=== PATIENT | female | born 1985 | race African-American/Black ===

== ENCOUNTER 2016-07-10 17:01 | Emergency (ER) | payer OTHER ==
[2016-07-10 18:09] VITALS: BP 111/65
== END 2016-07-10 19:55 | disposition left against medical advice (07) ==
LOC: UCEAST 17:01
DX: S61.019A Laceration without foreign body of unspecified thumb without damage to nail, initial encounter (principal); X58.XXXA Exposure to other specified factors, initial encounter; Y92.9 Unspecified place or not applicable; Z53.21 Procedure and treatment not carried out due to patient leaving prior to being seen by health care provider

== ENCOUNTER 2017-01-09 09:32 | Emergency (ER) | payer SELFPAY ==
[2017-01-09 10:43] VITALS: BP 105/52
[2017-01-09] MEDS ORDERED: Acetaminophen TAB* 325 MG PO ONE (11:00)
--- NOTE | 2017-01-09 11:24 | UC ---
Darrius Garcia Angela, scribed for Lu Martel MD on 01/09/17 at 1051 . Back Pain HPI - HPI Summary HPI Summary: This pt is a 31 y/o female accompanied by her presenting to [facility] c/o right-sided back pain, right hip pain, coccyx pain s/p fall 3 days ago. Pt reports she was walking out of a bar, in heels, going down stairs 3 days ago, she notes she was intoxicated and was walking down the metal stairs when she slipped 4 steps down. Pt states she fell sideways on her back and hip. Pt states has progressed since. She has not taken any pain medication yesterday or today. She used a muscle rub on her neck and hip with mild relief. She denies urinary or bowel incontinence, hematuria, tingling or weakness in LE, chipped teeth. No LOC. no ext weakness or paresthesia x 4 ext. No anticoagulants. no strike head. no LOC. Pt c/o pressure on her bladder. Pt denies any back surgeries. Pt is a current smoker (1 pack lasts 1.5 weeks), but denies drug use. Pt states she is trying to quit smoking. She is allergic to aspirin. LNMP: 12/10/16. Patients medication reviewed this visit. - History of Current Complaint Chief Complaint: UCBackPain Stated Complaint: back injury Time Seen by Provider: 01/09/17 10:29 Hx Obtained From: Patient, Family/Audiometric Technician - Hx Last Menstrual Period: 12/10/16 Onset/Duration: Lasting Days Timing: Lasting Days Back Pain: Is Discrete @ - right hip, coccyx pain, right sided back pain Associated Signs And Symptoms: Positive: Bruising. Negative: Swelling, Redness , Weakness, Numbness, Tingling, Abdominal Pain, Bladder Incontinence, Bowel Incontinence - Allergies/Home Medications Allergies/Adverse Reactions: Allergies Allergy/AdvReac Type Severity Reaction Status Date / Time Aspirin Allergy Mild Swelling Verified 01/09/17 10:39 Shellfish Allergy Allergy Rash Verified 01/09/17 10:39 PMH/Surg Hx/FS Hx/Imm Hx Previously Healthy: Yes Other Endocrine History: DENIES: diabetes Other Cardiovascular History: DENIES: HTN - Surgical History Surgical History: Yes Surgery Procedure, Year, and Place: ; stent post spontaneous pneumothorax - Family History Known Family History: Positive: Hypertension, Diabetes - Social History Occupation: Student - [employer] Lives: With Family Alcohol Use: Occasionally Substance Use Type: None Smoking Status (MU): Light Every Day Tobacco Smoker Type: Cigarettes Amount Used/How Often: 3 cigs daily Household Exposure Type: Cigarettes - Immunization History Most Recent Influenza Vaccination: utd Most Recent Tetanus Shot: utd Most Recent Pneumonia Vaccination: none Review of Systems Constitutional: Negative Skin: Bruising - right hip Eyes: Negative ENT: Negative Respiratory: Negative Cardiovascular: Negative Gastrointestinal: Negative Genitourinary: Negative Motor: Negative Neurovascular: Negative Musculoskeletal: Other: - right sided back pain, right hip pain, coccyx pain Neurological: Negative Psychological: Negative Is Patient Immunocompromised?: No All Other Systems Reviewed And Are Negative: Yes Physical Exam Triage Information Reviewed: Yes Appearance: Well-Appearing, Pain Distress - discomfort with movement, walking Vital Signs: Initial Vital Signs Temp 98.3 F 01/09/17 10:39 Pulse 82 01/09/17 10:39 Resp 16 01/09/17 10:39 BP 105/52 01/09/17 10:39 Pulse Ox 100 01/09/17 10:39 Vital Signs Reviewed: Yes Eye Exam: Normal Eyes: Positive: Conjunctiva Clear ENT Exam: Normal ENT: Positive: Normal ENT inspection, Hearing grossly normal, Pharynx normal, TMs normal, Other: - no hemotymp No septal hematoma no blood oropharynx mmoist no exudate, no erythema Dental Exam: Normal Neck exam: Normal Neck: Positive: Supple, Nontender, No Lymphadenopathy Respiratory Exam: Normal Respiratory: Positive: Chest non-tender, Lungs clear, Normal breath sounds, No respiratory distress, No accessory muscle use Cardiovascular Exam: Normal Cardiovascular: Positive: RRR, No Murmur, Pulses Normal Abdominal Exam: Normal Abdomen Description: Positive: Nontender, No Organomegaly, Soft Bowel Sounds: Positive: Present Musculoskeletal Exam: Normal Musculoskeletal: Positive: Other: - no pain c/t/l/s Full AROM c spine + TTP right paraspinal mild lumbar spine + mild TTP right iliac crest Full AROM ext x 4 Neurological Exam: Normal Neurological: Positive: Alert Psychological Exam: Normal Psychological: Positive: Normal Response To Family Skin: Positive: Other - linear ecchymosis 4cm over right iliac crest no abrasions Diagnostics - Radiology Pelvis XR Xray Interpretation: No Acute Changes - IMPRESSION: No evidence for fracture. If the patient's symptoms persist recommend follow-up imaging. ED physician has reviewed this radiology report and agrees. Radiology Interpretation Completed By: Radiologist Lumbar spine XR Xray Interpretation: Positive (See Comments) - IMPRESSION: Suggestion of nonacute sclerotic margined bilateral L5 spondylolysis without associated spondylolisthesis. No acute or subacute fracture evident. ED physician has reviewed this radiology report and agrees. Radiology Interpretation Completed By: Radiologist Re-Evaluation - Re-Evaluation First Eval Change: Improved - reviewed results with pt will discharge Rx flexeril schoolnote Back Pain Course/Dx - Course Course Of Treatment: Pt with body aches, right hip, iliac crest pain s/p slip and fall on Monday evening. I spoke with pt in private - pt denies DV - states feels safe at home. Will give APAP (pt states poorly tolerated narcotic in the past). ice. xray. pt comfortable and in agreement with plan - Differential Dx/Diagnosis Provider Diagnoses: contusion Discharge - Discharge Plan Condition: Stable Disposition: HOME Prescriptions: Cyclobenzaprine TAB* [Flexeril 10 MG TAB*] 10 mg PO BID PRN #6 tab PRN Reason: Spasms Patient Education Materials: Contusion in Adults (ED) Forms: *School Release Referrals: Nils Sharma MD [Primary Care Provider] - Additional Instructions: - apply ice (Wrapped in a towel) 20 minutes at a time, 2-3 times a day for the next 2 days - after this, apply heat - slow gentle stretching exercises are important - Okay to take Tylenol (acetaminophen) every 6-8 hours for pain - Take muscle relaxer as prescribed. do not drive or operate machinery while taking this medication - contact your doctor to schedule a follow-up appointment. Contact your doctor or return with questions or concerns The documentation as recorded by the Darrius negrete Angela accurately reflects the service I personally performed and the decisions made by , Lu Martel MD.
--- NOTE | 2017-01-09 11:43 | RAD ---
Indication: RIGHT lateral mid lumbar spine pain post fall. Comparison: No relevant prior exams available on the [facility] PACS for comparison. Technique: AP and lateral views lumbar sacral spine. Report: Normal lumbar sacral spine alignment. Suggestion of nonacute sclerotic margined bilateral L5 spondylolysis without associated spondylolisthesis. No acute or subacute fracture evident. Preserved disc spaces. Unremarkable paravertebral soft tissue contours. IMPRESSION: Suggestion of nonacute sclerotic margined bilateral L5 spondylolysis without associated spondylolisthesis. No acute or subacute fracture evident.
--- NOTE | 2017-01-09 11:47 | RAD ---
INDICATION: Trauma, ecchymosis lateral lumbar spine and right iliac crest. TECHNIQUE: An AP view of the pelvis was obtained. FINDINGS: The bones are in normal alignment. No fracture is seen. Joint spaces appear maintained. IMPRESSION: NO EVIDENCE FOR FRACTURE, IF THE PATIENT'S SYMPTOMS PERSIST RECOMMEND FOLLOW-UP IMAGING.
== END 2017-01-09 12:03 | disposition home or self-care (01) ==
LOC: UCEAST 09:32
DX: S30.1XXA Contusion of abdominal wall, initial encounter (principal); W10.9XXA Fall (on) (from) unspecified stairs and steps, initial encounter; Y93.89 Activity, other specified; Y92.89 Other specified places as the place of occurrence of the external cause; M79.1 Myalgia; M25.551 Pain in right hip; Z88.6 Allergy status to analgesic agent; F17.210 Nicotine dependence, cigarettes, uncomplicated
CPT/HCPCS: 72100; 72170; 81003; 99212; A9270-GY; G0463

== ENCOUNTER 2017-01-12 09:41 | Emergency (ER) | payer OTHER ==
[2017-01-12] MEDS ORDERED: HYDROcodone/ACETAMIN 5-325 MG* 1 TAB PO ONE (10:29)
[2017-01-12 10:31] LABS: Hematocrit 35 % (35-47); Hemoglobin 11.9 g/dl (12.0-16.0); Mean Corpuscular HGB Conc 34 g/dl (31-36); Mean Corpuscular Hemoglobin 32 pg (27-31); Mean Corpuscular Volume 94 fL (80-97); Mean Platelet Volume 7 um3 (7.4-10.4); Red Cell Distribution Width 14 % (10.5-15); White Blood Count 4.1 10^3/ul (3.5-10.8)
--- NOTE | 2017-01-12 10:53 | RAD ---
HISTORY: Chest pain COMPARISONS: March 22, 2016 VIEWS: 1: frontal portable view of the chest at at 10:35 AM FINDINGS: LINES AND TUBES: None. CARDIOMEDIASTINAL SILHOUETTE: The cardiomediastinal silhouette is normal for portable technique. PLEURA: The costophrenic angles are sharp. No pleural abnormalities are noted. LUNG PARENCHYMA: The lungs are clear. ABDOMEN: The upper abdomen is clear. There is no subphrenic gas. BONES AND SOFT TISSUES: No bone or soft tissue abnormalities are noted. IMPRESSION: NO ACTIVE CARDIOPULMONARY DISEASE.
[2017-01-12 11:04] LABS: Albumin 4.1 g/dL (3.2-5.2); BUN/Creatinine Ratio 12.5 (8-20); Calcium 9.3 mg/dL (8.6-10.3); EGFR African American 108.3 (>60); EGFR Non-African American 84.2 (>60); Potassium 3.8 mmol/L (3.5-5.0); Total Bilirubin 0.6 mg/dL (0.2-1.0); Total Protein 7.1 g/dL (6.4-8.9)
[2017-01-12 11:55] VITALS: BP 115/73
--- NOTE | 2017-01-12 18:33 | ED ---
Darrius Garcia Angela, scribed for Arias Blevins MD on 01/12/17 at 1031 . HPI Chest Pain - HPI Summary HPI Summary: This pt is a 31 y/[facility] c/o pain across her chest and behind her collar bones x3 days. Pt reports she fell down the stairs 5 days ago , she slipped and hit her hip. She went to [facility] for hip pain and ecchymosis 3 days ago. After 2 days, pt reports she began to experience sharp pain on her chest and across her back. Yesterday, pt noticed she was SOB. She states taking Flexeril last night at 0100 with mild relief. Pt denies LE swelling or pain. - History of Current Complaint Chief Complaint: EDChestPainROMI Time Seen by Provider: 01/12/17 10:02 Hx Obtained From: Patient Hx Last Menstrual Period: 12/10/16 Onset/Duration: Started Days Ago Timing: Lasting Days Pain Intensity: 8 Pain Scale Used: 0-10 Numeric Chest Pain Location: Diffuse Chest Pain Radiates: No Associated Signs and Symptoms: Positive: Chest Pain, Shortness of Breath, Back Pain. Negative: Numbness, Tingling, Weakness, Calf Pain/Swelling - Allergy/Home Medications Allergies/Adverse Reactions: Allergies Allergy/AdvReac Type Severity Reaction Status Date / Time Aspirin Allergy Mild Swelling Verified 01/09/17 10:39 Shellfish Allergy Allergy Rash Verified 01/09/17 10:39 PMH/Surg Hx/FS Hx/Imm Hx Endocrine/Hematology History: Denies: Hx Diabetes, Hx Thyroid Disease Cardiovascular History: Denies: Hx Hypertension Respiratory History: Denies: Hx Asthma, Hx Chronic Obstructive Pulmonary Disease (COPD) GI History: Denies: Hx Ulcer - Surgical History Surgery Procedure, Year, and Place: ; stent post spontaneous pneumothorax Infectious Disease History: No Infectious Disease History: Reports: Hx Shingles - had treatment Denies: Hx Clostridium Difficile, Hx Hepatitis, Hx Human Immunodeficiency Virus (HIV), Hx of Known/Suspected MRSA, Hx Tuberculosis, Hx Known/Suspected VRE , Hx Known/Suspected VRSA, History Other Infectious Disease, Traveled Outside the [place] in Last 30 Days - Family History Known Family History: Positive: Hypertension, Diabetes - Social History Alcohol Use: Occasionally Substance Use Type: Reports: None Smoking Status (MU): Light Every Day Tobacco Smoker Type: Cigarettes Amount Used/How Often: 3 cigs daily Review of Systems Negative: Fever, Chills ENT: Negative Positive: Chest Pain Positive: Shortness Of Breath Gastrointestinal: Negative Positive: Other - back pain. Negative: Edema Negative: Headache, Weakness, Paresthesia All Other Systems Reviewed And Are Negative: Yes Physical Exam - Summary Physical Exam Summary: VITAL SIGNS: Reviewed. GENERAL: ~Patient is a well-developed and nourished female who is lying comfortable in the stretcher. ~Patient is not in any acute respiratory distress. HEAD AND FACE: No signs of trauma. ~No ecchymosis, hematomas or skull depressions. No sinus tenderness. EYES: PERRLA, EOMI x 2, No injected conjunctiva, no nystagmus. EARS: Hearing grossly intact. Ear canals and tympanic membranes are within normal limits. MOUTH: Oropharynx within normal limits. NECK: Supple, trachea is midline, no adenopathy, no JVD, no carotid bruit, no c- spine tenderness, neck with full ROM. CHEST: Symmetric. There is some tenderness on the upper chest. LUNGS: Clear to auscultation bilaterally. No wheezing or crackles. CVS: Regular rate and rhythm, S1 and S2 present, no murmurs or gallops appreciated. ABDOMEN: Soft, non-tender. No signs of distention. No rebound no guarding, and no masses palpated. Bowel sounds are normal. EXTREMITIES: FROM in all major joints, no edema, no cyanosis or clubbing. MSK: there is comes tenderness in the upper back. NEURO: Alert and oriented x 3. No acute neurological deficits. Speech is normal and follows commands. SKIN: Dry and warm Triage Information Reviewed: Yes Vital Signs On Initial Exam: Initial Vitals Temp Pulse Resp BP Pulse Ox 97.8 F 70 18 115/70 100 01/12/17 09:41 01/12/17 09:41 01/12/17 09:41 01/12/17 09:41 01/12/17 09:41 Vital Signs Reviewed: Yes Diagnostics - Vital Signs Vital Signs Temp Pulse Resp BP Pulse Ox 01/12/17 09:41 97.8 F 70 18 115/70 100 - Laboratory Lab Results: Lab Results 01/12/17 01/12/17 01/12/17 Range/Units 10:18 10:18 10:18 WBC 4.1 (3.5-10.8) 10^3/ul RBC 3.70 L (4.0-5.4) 10^6/ul Hgb 11.9 L (12.0-16.0) g/dl Hct 35 (35-47) % MCV 94 (80-97) fL MCH 32 H (27-31) pg MCHC 34 (31-36) g/dl RDW 14 (10.5-15) % Plt Count 252 (150-450) 10^3/ul MPV 7 L (7.4-10.4) um3 Neut % (Auto) 49.3 (38-83) % Lymph % (Auto) 39.5 (25-47) % [place] % (Auto) 7.4 (1-9) % Eos % (Auto) 2.9 (0-6) % Baso % (Auto) 0.9 (0-2) % Absolute Neuts (auto) 2.0 (1.5-7.7) 10^3/ul Absolute Lymphs (auto) 1.6 (1.0-4.8) 10^3/ul Absolute Monos (auto) 0.3 (0-0.8) 10^3/ul Absolute Eos (auto) 0.1 (0-0.6) 10^3/ul Absolute Basos (auto) 0 (0-0.2) 10^3/ul Absolute Nucleated RBC 0 10^3/ul Nucleated RBC % 0.1 Sodium 136 (133-145) mmol/L Potassium 3.8 (3.5-5.0) mmol/L Chloride 105 (101-111) mmol/L Carbon Dioxide 25 (22-32) mmol/L Anion Gap 6 (2-11) mmol/L BUN 10 (6-24) mg/dL Creatinine 0.80 (0.51-0.95) mg/dL Est GFR ( Amer) 108.3 (>60) Est GFR (Non-Af Amer) 84.2 (>60) BUN/Creatinine Ratio 12.5 (8-20) Glucose 88 (70-100) mg/dL Lactic Acid 0.9 (0.5-2.0) mmol/L Calcium 9.3 (8.6-10.3) mg/dL Total Bilirubin 0.60 (0.2-1.0) mg/dL AST 16 (13-39) U/L ALT 15 (7-52) U/L Alkaline Phosphatase 50 (34-104) U/L Troponin I 0.00 (<0.04) ng/mL Total Protein 7.1 (6.4-8.9) g/dL Albumin 4.1 (3.2-5.2) g/dL Globulin 3.0 (2-4) g/dL Albumin/Globulin Ratio 1.4 (1-3) Result Diagrams: 01/12/17 10:18 01/12/17 10:18 Lab Statement: Any lab studies that have been ordered have been reviewed, and results considered in the medical decision making process. - Radiology Chest XR Xray Interpretation: No Acute Changes - IMPRESSION: No active cardiopulmonary disease. ED physician has reviewed this radiology report and agrees. Radiology Interpretation Completed By: Radiologist - EKG 1004 Cardiac Rate: NL - 68 bpm EKG Rhythm: Sinus Rhythm ST Segment: Normal EKG Interpretation: Normal axis. No ST elevation Re-Evaluation - Re-Evaluation First Eval Re-Evaluation Time: 11:43 Comment: I discussed the XR results with the pt. Chest Pain Course/Dx - Course Assessment/Plan: This pt is a 31 y/o female presenting to [facility] c/o pain across her chest and behind her collar bones x3 days. Pt reports she fell down the stairs 5 days ago, she slipped and hit her hip. She went to [facility] for hip pain and ecchymosis 3 days ago. After 2 days, pt reports she began to experience sharp pain on her chest and across her back. Yesterday, pt noticed she was SOB. She states taking Flexeril last night at 0100 with mild relief. Pt denies LE swelling or pain. Test results are without any abnormalities. Chest XR is negative for an acute pathology. Physical examination did not reveal any acute abnormalities. In the ED, the pt was given Percocet for the pain and her symptoms resolved. Pt was upset for a couple of hours and the symptoms did not return. I believe her symptoms are secondary to musculoskeletal pain and to her fall a couple of days ago. Pt will be discharged home with follow up from PCP. Pt is hemodynamically stable, alert and oriented x3. - Chest Pain Differential Diagnosis/HQI/PQRI: Angina, CHF, Chest Wall, GI Disease, Lower Respiratory Infection - Diagnoses Provider Diagnoses: Atypical chest pain Discharge - Discharge Plan Condition: Stable Disposition: HOME Prescriptions: Naproxen TAB* [Naprosyn 250 mg TAB*] 500 mg PO Q8H PRN #20 tab PRN Reason: Pain Patient Education Materials: Chest Pain (ED) Referrals: Nils Sharma MD [Primary Care Provider] - 3 Days Additional Instructions: Please follow up with your primary care provider. The documentation as recorded by the Darrius negrete Angela accurately reflects the service I personally performed and the decisions made by Gen quezada Walter, MD.
== END 2017-01-12 11:56 | disposition home or self-care (01) ==
LOC: ED 09:41
DX: R07.89 Other chest pain (principal); F17.210 Nicotine dependence, cigarettes, uncomplicated
CPT/HCPCS: 36415; 71010; 80053; 83605; 84484; 85025; 93005; 99283

== ENCOUNTER 2017-04-30 10:07 | Emergency (ER) | payer OTHER ==
[2017-04-30 10:10] VITALS: BP 124/76
[2017-04-30] MEDS ORDERED: NS 0.9% 1000 ML* 1,000 ML IV ONE (10:32)
[2017-04-30 11:00] LABS: ABS Basophils 0 10^3/ul (0-0.2); ABS Eosinophils 0.1 10^3/ul (0-0.6); ABS Lymphocytes 1.6 10^3/ul (1.0-4.8); ABS Monocytes 0.3 10^3/ul (0-0.8); ABS Neutrophils 2.3 10^3/ul (1.5-7.7); ABS Nucleated RBC 0 10^3/ul; Eosinophil % 1.6 % (0-6); Hematocrit 36 % (35-47); Hemoglobin 12.2 g/dl (12.0-16.0); Lymphocyte % 36.8 % (25-47); Mean Corpuscular HGB Conc 34 g/dl (31-36); Mean Corpuscular Hemoglobin 32 pg (27-31); Mean Corpuscular Volume 95 fL (80-97); Mean Platelet Volume 8 um3 (7.4-10.4); Nucleated Red Blood Cells % 0.1; Platelet Count 218 10^3/ul (150-450); Red Cell Distribution Width 13 % (10.5-15); White Blood Count 4.3 10^3/ul (3.5-10.8)
--- NOTE | 2017-04-30 11:01 | ED ---
GI/ HPI - HPI Summary HPI Summary: 31 female presents to ED with complaints of vaginal bleeding that has been ongoing since the beginning of March 2017. Patient states she began a OCP pill just after thanksgi and began spotting that turned into heavy bleeding so patient then discontinued OCP about a week in a half after starting them. Has not restarted or been on any control since then. Patient denies any PMHx and no history. Denies STD concern, other vaginal discharge, odor or itching. Denies urinary symptoms. Normal bowel movements. States the bleeding has been fluctuating in flow over the past few weeks however over the past 3 days patient has had heavy bleeding ~2 super pads per hour. Feels dizzy, lightheaded, fatigued and experiencing muscle aches "feels depleted". Also has some mild menstrual cycle like cramping over the past couple of days, similar to menses pain. No concern for . Does have PMHX of iron deficiency anemia however hasn't been taking iron. Denies any syncopal episodes. No other complaints or abdominal pain. No medications. Has been 4-5 times and has 2 children, normal pregnancies/births. - History of Current Complaint Chief Complaint: EDVaginalBleeding Time Seen by Provider: 04/30/17 10:30 Stated Complaint: WEAKNESS Hx Obtained From: Patient Hx Last Menstrual Period: 03/18/2017 Onset/Duration: Started Weeks Ago, Still Present Timing: Constant Severity: Mild Current Severity: Mild Number of Pads per Hour: 2 Pain Intensity: 6 Location of Pain: Suprapubic - cramping Pain Characteristics: Cramping Associated Signs and Symptoms: Positive: Weakness, Lightheadedness Additional Signs & Symptoms: Positive: Vaginal Bleeding, - 4 or 5, Para - 2, Menses Irregular Aggravating Factor(s): Nothing Alleviating Factor(s): Nothing - Allergy/Home Medications Allergies/Adverse Reactions: Allergies Allergy/AdvReac Type Severity Reaction Status Date / Time Aspirin Allergy Mild Swelling Verified 04/30/17 10:11 Shellfish Allergy Allergy Rash Verified 04/30/17 10:11 PMH/Surg Hx/FS Hx/Imm Hx Endocrine/Hematology History: Reports: Hx Anemia Denies: Hx Diabetes, Hx Thyroid Disease Cardiovascular History: Denies: Hx Hypertension Respiratory History: Denies: Hx Asthma, Hx Chronic Obstructive Pulmonary Disease (COPD) GI History: Denies: Hx Ulcer - Surgical History Surgery Procedure, Year, and Place: ; stent post spontaneous pneumothorax - Immunization History Immunizations Up to Date: Yes Infectious Disease History: No Infectious Disease History: Reports: Hx Shingles - had treatment Denies: Hx Clostridium Difficile, Hx Hepatitis, Hx Human Immunodeficiency Virus (HIV), Hx of Known/Suspected MRSA, Hx Tuberculosis, Hx Known/Suspected VRE , Hx Known/Suspected VRSA, History Other Infectious Disease, Traveled Outside the [place] in Last 30 Days - Family History Known Family History: Positive: None, Hypertension, Diabetes - Social History Alcohol Use: Occasionally Substance Use Type: Reports: None Smoking Status (MU): Light Every Day Tobacco Smoker Type: Cigarettes Amount Used/How Often: 3 cigs daily Review of Systems Positive: Fatigue Cardiovascular: Negative Respiratory: Negative Positive: Abdominal Pain - craming, suprapubic Positive: other - vaginal bleeding, cramping Musculoskeletal: Negative Skin: Negative Positive: Weakness - dizziness/lightheaded when changing positions quickly All Other Systems Reviewed And Are Negative: Yes Physical Exam Triage Information Reviewed: Yes Vital Signs On Initial Exam: Initial Vitals Temp Pulse Resp BP Pulse Ox 97.0 F 86 15 124/76 100 04/30/17 10:04/30/17 10:04/30/17 10:04/30/17 10:04/30/17 10:07 Completion Of Physical Exam Limited Due To: Dementia Appearance: Positive: Well-Appearing, No Pain Distress, Well-Nourished Skin: Positive: Warm, Skin Color Reflects Adequate Perfusion, Dry, Pale. Negative: Cold, Cyanosis @, Jaundiced, Erythema @ Head/Face: Positive: Normal Head/Face Inspection Eyes: Positive: Conjunctiva Clear ENT: Positive: Hearing grossly normal Neck: Positive: Supple, Nontender Respiratory/Lung Sounds: Positive: Clear to Auscultation, Breath Sounds Present. Negative: Rales, Rhonchi, Wheezes Cardiovascular: Positive: Normal, RRR, Pulses are Symmetrical in both Upper and Lower Extremities. Negative: Murmur, Rub Abdomen Description: Positive: Nontender, Soft. Negative: CVA Tenderness (R), CVA Tenderness (L), Distended, Guarding Bowel Sounds: Positive: Present Pelvic Exam: Positive: active bleeding, tender w/ cervical motion, other - patient refused exam Musculoskeletal: Positive: Normal, Strength/ROM Intact Neurological: Positive: Normal, Sensory/Motor Intact, Alert, Oriented to Person Place, Time, CN Intact II-III, Reflexes Intact, NV Bundle Intact Distally, Normal Gait Diagnostics - Vital Signs Vital Signs Temp Pulse Resp BP Pulse Ox 04/30/17 10:07 97.0 F 86 15 124/76 100 - Laboratory Result Diagrams: 04/30/17 10:51 04/30/17 10:51 Lab Statement: Any lab studies that have been ordered have been reviewed, and results considered in the medical decision making process. - Ultrasound No standard instances Ultrasound Interpretation: No Acute Changes - 1. NO EVIDENCE FOR ACUTE FINDING. 2. SMALL COMPLEX RIGHT OVARIAN CYST. RECOMMEND A FOLLOW-UP TRANSVAGINAL PELVIC ULTRASOUND IN 1-2 MONTHS TIME TO DEMONSTRATE RESOLUTION. 3. FINDINGS SUGGESTIVE OF PELVIC CONGESTION SYNDROME. Ultrasound Interpretation Completed By: Radiologist Re-Evaluation - Re-Evaluation First Eval Re-Evaluation Time: 12:44 Change: Worse - cramps intensified, asking for pain management, will give toradol. updated on labs and imaging results. GIGU Course/Dx - Course Course Of Treatment: labs obtained. given fluids. labs unremarkable and no signs of anemia. negative HCG. did not want pain management at first however once cramps increased given 30mg toradol. obtained ultrasound which was negative for acute finding other than small right ovarian cyst, recheck in 1-2 months as it is complex, patient aware, agrees and understands. normal vitals throughout stay not showing signs of hypovolemia. patietn refused pelvic exam, therefore no cultures obtained. normal PE other than vaginal bleeding. does not have OBGYN and just went to [facility] in the past. negative urinalysis other than 1+ leuk esterasy and blood, as patient is having vaginal bleeding. does not have UTI symptoms and no bacteria WBC or nitrate in urinalysis, will wait for culture results at this time. due to complaints of muscle/joint aches and exposure to ticks over summer will obtain lyme serology, pending results. will send home with pain management. given toradol while in ED. Encouraged high iron diet and heating pads. increase fluids, rest. Follow up OBGYN to discuss OCP and DUB symptoms adn to recheck small right ovarian cyst. Aware of worsening signs and symptoms to watch out for, return if occur. No other concerns for other etiology at this time. - Diagnoses Differential Diagnoses - Female: Other - vaginal bleeding, DUB, menorhagia, menses, ovarian cyst Provider Diagnoses: Dysfunctional uterine bleeding, Menorrhagia with irregular cycle, Ovarian cyst , right Discharge - Discharge Plan Condition: Stable Disposition: HOME Prescriptions: HYDROcodone/ACETAMIN 5-325 MG* [Felicity 5-325 TAB*] 1 tab PO Q8H PRN #8 tab MDD 2 PRN Reason: Pain Ibuprofen TAB* [Motrin TAB* 600 MG] 600 mg PO Q6H PRN #30 tab PRN Reason: Pain Patient Education Materials: Dysfunctional Uterine Bleeding (ED), Menorrhagia ( ED), Ovarian Cyst (ED) Referrals: Nils Sharma MD [Primary Care Provider] - Gay Clifford MD [Medical Doctor] - Additional Instructions: Please call and make an appointment to follow up with OBGYN to discuss further treatment options and evaluation. Any new or worsening symptoms please seek medical attention promptly. Recommend eating high iron diet, or continue taking iron supplements as in the past. Increase fluid intake, rest. Prescribed medication as needed for pain, Refrain from ibuprofen until tomorrow morning. Heating pads on lower abdomen to help with cramps.
[2017-04-30 11:18] LABS: EGFR Non-African American 84.2 (>60)
[2017-04-30 11:29] LABS: INR 1.02 (0.77-1.02)
--- NOTE | 2017-04-30 12:15 | RAD ---
INDICATION: Vaginal bleeding for one month. COMPARISON: Comparison is made with a prior pelvic ultrasound from February 01, 2007. TECHNIQUE: Multiple real-time transvaginal images of the pelvis were obtained. FINDINGS: The uterus is normal in size, shape and echogenicity. The uterus measured 8.2 x 3.5 x 4.3 cm. The endometrial echo measured 0.2 cm in thickness. The right ovary measured 3.0 x 3.2 x 2.5 cm. The left ovary measured 2.8 x 1.7 x 2.6 cm. There is vascular flow within both ovaries. There is a complex cyst in the right ovary measured 2.5 x 1.9 x 2.3 cm. No free intraperitoneal fluid is seen. There are prominent vascular structures present in both adnexa left greater than right suggesting the possibility of pelvic congestion syndrome. IMPRESSION: 1. NO EVIDENCE FOR ACUTE FINDING. 2. SMALL COMPLEX RIGHT OVARIAN CYST. RECOMMEND A FOLLOW-UP TRANSVAGINAL PELVIC ULTRASOUND IN 1-2 MONTHS TIME TO DEMONSTRATE RESOLUTION. 3. FINDINGS SUGGESTIVE OF PELVIC CONGESTION SYNDROME.
[2017-04-30] MEDS ORDERED: Ketorolac INJ* 30 MG/ML 1 ML VIAL IV PUSH ONE (12:40)
[2017-04-30 12:46] LABS: Urine Appearance Clear; Urine Blood 3+ (Negative); Urine Color Yellow; Urine Ketones Trace (Negative); Urine Protein 1+(30 mg/dL) (Negative); Urine Specific Gravity 1.019 (1.010-1.030); Urine Urobilinogen Negative (Negative)
== END 2017-04-30 13:04 | disposition home or self-care (01) ==
LOC: ED 10:07
DX: N93.8 Other specified abnormal uterine and vaginal bleeding (principal); N92.0 Excessive and frequent menstruation with regular cycle; N83.201 Unspecified ovarian cyst, right side; R53.1 Weakness; R42 Dizziness and giddiness; R53.83 Other fatigue; F17.210 Nicotine dependence, cigarettes, uncomplicated
CPT/HCPCS: 36415; 76830; 80053; 81003; 81015; 83605; 84702; 85025; 85610; 85730; 86850; 86900; 86901; 87086; 96361; 96374; 99282; J1885

== ENCOUNTER 2018-01-07 21:12 | Emergency (ER) | payer OTHER ==
[2018-01-07 21:30] VITALS: BP 97/57
--- NOTE | 2018-01-07 22:34 | UC ---
Respiratory Complaint HPI - HPI Summary HPI Summary: 32 y/o female presents to the urgent care c/o upper respiratory infection s/p RT mold exposure for the past week. Pt was moving out her appt and she was exposed to a lot of mold. Then she developed productive cough for the past 4 days. She has subjective low grade fever yesterday and she has been coughing so much that her Rt side of chest hurts. Pt has been taking Nyquil PO w/o any improvement of symptoms. Pt dneis SOB, wheezing, abdominal pain, chest pain, N/V /D. Pt w/ PMHx pf spontaneous pneumothorax - History of Current Complaint Chief Complaint: UCGeneralIllness Stated Complaint: COUGH Time Seen by Provider: 01/07/18 22:09 Hx Obtained From: Patient Hx Last Menstrual Period: [id number] ?: No Onset/Duration: Gradual Onset, Lasting Weeks - 1 week, Still Present, Worse Since - 4 days Timing: Intermittent Episodes Severity Initially: Mild Severity Currently: Moderate Pain Intensity: 8 Pain Scale Used: 0-10 Numeric Character: Cough: Productive, Sputum Description: - [email or web address] Aggravating Factors: Recumbent Position Alleviating Factors: OTC Meds Associated Signs And Symptoms: Positive: Fever - at the beining of symptoms, URI , Nasal Congestion - Risk Factors Pulmonary Embolism Risk Factors: Negative Cardiac Risk Factors: Negative Pseudomonas Risk Factors: Negative Tuberculosis Risk Factors: Negative - Allergies/Home Medications Allergies/Adverse Reactions: Allergies Allergy/AdvReac Type Severity Reaction Status Date / Time aspirin Allergy Swelling Verified 01/07/18 21:30 PMH/Surg Hx/FS Hx/Imm Hx Previously Healthy: Yes Other Respiratory History: spontaneous pneumothorax - Surgical History Surgical History: Yes Surgery Procedure, Year, and Place: ; stent post spontaneous pneumothorax - Family History Known Family History: Positive: Hypertension, Diabetes - Social History Occupation: Employed Full-time Lives: With Family Alcohol Use: Occasionally Substance Use Type: None Smoking Status (MU): Light Every Day Tobacco Smoker Type: Cigarettes Amount Used/How Often: 3 cigs daily Household Exposure Type: Cigarettes - Immunization History Most Recent Influenza Vaccination: utd Most Recent Tetanus Shot: utd Most Recent Pneumonia Vaccination: none Review of Systems Constitutional: Negative Skin: Negative Eyes: Negative ENT: Nasal Discharge, Sinus Congestion Respiratory: Cough - productive, Other - Rt side chest pain on deep breathing or coughing Cardiovascular: Negative Gastrointestinal: Negative Genitourinary: Negative Motor: Negative Neurovascular: Negative Musculoskeletal: Negative Neurological: Negative Psychological: Negative Is Patient Immunocompromised?: No All Other Systems Reviewed And Are Negative: Yes Physical Exam - Summary Physical Exam Summary: Vital Signs Reviewed: Yes General: well developed, well nourished female sitting in the examining table w/ o any apparent distress Eyes: Positive: Conjunctiva Clear - PERRLA, EOMI, fundi grossly normal ENT: Positive: Normal ENT inspection, Hearing grossly normal, Pharynx normal, Nasal congestion - edematous and erythematous nasal mucosa, Nasal drainage - yellowish drainage, TMs normal. Negative: Tonsillar swelling, Tonsillar exudate Neck: Positive: Supple, Nontender, No Lymphadenopathy Respiratory: no orthopnea or dyspnea. Able to speak in full sentences, no retractions or accessory muscle use, no tripod position, stridor, or head bobbing. Positive breath sound bilaterally, positive B/L posterior upper lungs w / rhonchi, no lung wheezes, crackles or rales. Positive Rt sdie sternung point tenderness on palpation Cardiovascular: Positive: RRR, No Murmur, Pulses Normal, Brisk Capillary Refill Abdomen Description: Positive: Nontender, No Organomegaly, Soft. Negative: CVA Tenderness (R), CVA Tenderness (L) Bowel Sounds: Positive: Present Musculoskeletal Exam: Normal Musculoskeletal: Positive: Strength Intact, ROM Intact, No Edema Neurological Exam: Normal Psychological Exam: Normal Skin Exam: Normal Triage Information Reviewed: Yes Vital Signs: Initial Vital Signs Temp 97.7 F 01/07/18 21:25 Pulse 83 01/07/18 21:25 Resp 18 01/07/18 21:25 BP 97/57 01/07/18 21:25 Pulse Ox 100 01/07/18 21:25 Diagnostic Evaluation - Laboratory O2 Sat by Pulse Oximetry: 100 Respiratory Course/Dx - Course Course Of Treatment: Pt w/ PMHx pf spontaneous pneumothorax. Pt is hemodynamically stable. B/L posterior upper lungs w/ scattered rhonchi and point tenderness over the Rt side of sternum. O2Sat:100% on examination. Chest X -ray ordered to r/o pneumonia or spontaneous pneumothorax. Impression: No cardiopulmonary disease observed. Pt with Acute bronchitis and costochondritits. Pt Rx Z-trena PO and Ibuprofen PO to alleviate symptoms. Pt also Rx Tessalon tabs and Albuterol inhaler to alleviate bronchospasm. Pt advised to increase fluid intake and eat well. if not improvement or worsening of symptoms to return to the urgent care or f/u with PCP for further management. D/C instructions expalined. Pt understood and agreed with plan of care. - Differential Dx/Diagnosis Differential Diagnosis/HQI/PQRI: Asthma, Bronchitis, Lower Resp Infection, Pneumothorax, Sinusitis - pneumonai,, Other Provider Diagnoses: 1- Acute bronchitis. 2- Cough. 3- Costochondritis Discharge - Sign-Out/Discharge Documenting (check all that apply): Patient Departure All imaging exams completed and their final reports reviewed: No - Discharge Plan Condition: Stable Disposition: HOME Prescriptions: Albuterol HFA INHALER* [Ventolin HFA Inhaler*] 1 - 2 puff INH Q6H PRN #1 mdi PRN Reason: bronchospasm Azithromycin TAB* [Zithromax TAB (Z-TRENA) 250 mg #6 tabs] 250 mg PO DAILY #4 tab Benzonatate CAP* [Tessalon 100 MG CAP*] 100 mg PO TID #21 cap Ibuprofen TAB* [Motrin TAB* 600 MG] 600 mg PO Q6H PRN #30 tab PRN Reason: Pain Patient Education Materials: Costochondritis (ED), Acute Bronchitis (ED) Referrals: Nils Sharma MD [Primary Care Provider] - 3 Days Additional Instructions: 1-Please take full course of antibiotic to avoid resistance. First dose given at the clinic tonight 2-Take Tessalon PO tabs as directed and use the albuterol inhaler to alleviate cough. Increase fluid intake, rest and eat well. 3- If symptoms do not improve or worsen or your develop SOB with fever please go immediately to the ER further evaluation and treatment. 4- F/u with your PCP if not improvement of symptoms in 3 days for further management. - Billing Disposition and Condition Condition: STABLE Disposition: Home
[2018-01-07] MEDS ORDERED: Azithromycin TAB* 250 MG PO ONE (22:42)
[2018-01-07] MEDS ORDERED: Ibuprofen TAB* 600 MG PO ONE (22:42)
--- NOTE | 2018-01-08 07:57 | RAD ---
INDICATION: Productive cough and fever. COMPARISON: Comparison is made with a prior chest x-ray study from January 12, 2017. TECHNIQUE: Dual-energy PA and lateral views of the chest were obtained. FINDINGS: The heart is within normal limits in size. Mediastinal and hilar contours appear within normal limits. The lungs are clear. No pleural effusion is present. IMPRESSION: NO EVIDENCE FOR ACTIVE CARDIOPULMONARY DISEASE. R0
--- NOTE | 2018-01-08 08:51 | UC ---
- EKG/XRAY/CT XRAY: chest Xray Comments: wet read correct Discharge - Sign-Out/Discharge Documenting (check all that apply): Post-Discharge Follow Up All imaging exams completed and their final reports reviewed: Yes - Discharge Plan Condition: Stable Disposition: HOME Prescriptions: Albuterol HFA INHALER* [Ventolin HFA Inhaler*] 1 - 2 puff INH Q6H PRN #1 mdi PRN Reason: bronchospasm Azithromycin TAB* [Zithromax TAB (Z-TRENA) 250 mg #6 tabs] 250 mg PO DAILY #4 tab Benzonatate CAP* [Tessalon 100 MG CAP*] 100 mg PO TID #21 cap Ibuprofen TAB* [Motrin TAB* 600 MG] 600 mg PO Q6H PRN #30 tab PRN Reason: Pain Patient Education Materials: Costochondritis (ED), Acute Bronchitis (ED) Referrals: Nils Sharma MD [Primary Care Provider] - 3 Days Additional Instructions: 1-Please take full course of antibiotic to avoid resistance. First dose given at the clinic tonight 2-Take Tessalon PO tabs as directed and use the albuterol inhaler to alleviate cough. Increase fluid intake, rest and eat well. 3- If symptoms do not improve or worsen or your develop SOB with fever please go immediately to the ER further evaluation and treatment. 4- F/u with your PCP if not improvement of symptoms in 3 days for further management. - Billing Disposition and Condition Condition: STABLE Disposition: Home
== END 2018-01-07 23:00 | disposition home or self-care (01) ==
LOC: UCEAST 21:12
DX: J20.9 Acute bronchitis, unspecified (principal); M94.0 Chondrocostal junction syndrome [Tietze]; Z77.120 Contact with and (suspected) exposure to mold (toxic); Z88.6 Allergy status to analgesic agent; F17.210 Nicotine dependence, cigarettes, uncomplicated
CPT/HCPCS: 71046; 99212; A9270-GY; G0463

== ENCOUNTER 2018-05-09 12:26 | Emergency (ER) | payer OTHER ==
--- NOTE | 2018-05-09 12:46 | ED ---
Abdominal Pain/Female - HPI Summary HPI Summary: A 32 y/o female accompanied by a friend presents to the ED c/o abdominal cramping. Currently, the patient is still experiencing abdominal cramping on the right side reaching 9/10 in severity. As per triage, "Pt says she had a positive a few days ago, pt had cramping last night, took a shower and then felt better. Pt says she had more cramps after waking up and had "brown " blood coming from vagina. Pt also c/o R flank pain that radiates down R leg to knee". According to the patient, she did a test a few days ago that came back positive. She stated that she had some cramping at work all day yesterday, and around 2029 - 2099, her cramps became worse, however, she took a hot shower and laid down which made her feel better. She noted that she woke up this morning with worse cramps, but this time on the right side. Additionally, she noticed that the shorts she slept in that night had brown blood. She called Family Medicine, however, she could not get in today, so she came to [facility]. She noted that the pain all started last night with lower back pain (above buttock) and diffuse abdominal cramps. This morning, it is just on the right side. She denies any urinary issues at this time such as burning, pain, or hematuria, however, she has been urinating more. She also denies any vaginal spotting (bright red blood), except for the small amount of dark red blood she saw in her shorts additionally she noticed a very small dark red clot that came out in the shower. Patient has been before, she has 2 children and has had some miscarriages/abortions. Patient is unsure of her LKMP, however, she stated that around April 11, she had what seemed to be a period for a day, however, that is not typical for her. On March 14, she had her period for 3 days which is normal. Periods were regular in February, but very odd in March. Patient has no other medical issues. Patient takes Vitamin D and recently got off Lexapro. Patient works for [employer]. Home Medications Medication Instructions Recorded Confirmed Type Albuterol HFA INHALER* [Ventolin 1 - 2 puff INH Q6H PRN #1 mdi 09/16/18 Rx HFA Inhaler*] Azithromycin TAB* [Zithromax TAB 250 mg PO DAILY #4 tab 01/07/18 Rx (Z-TRENA) 250 mg #6 tabs] Benzonatate CAP* [Tessalon 100 MG 100 mg PO TID #21 cap 01/07/18 Rx CAP*] Ibuprofen TAB* [Motrin TAB* 600 MG] 600 mg PO Q6H PRN #30 tab 01/07/18 Rx - History of Current Complaint Chief Complaint: EDAbdPain Stated Complaint: PREG/BLEEDING AND CRAMPING Hx Obtained From: Patient Hx Last Menstrual Period: [id number] Onset/Duration: Sudden Onset, Lasting Days, Still Present, Worse Since Timing: Constant Severity Initially: Severe - 9/10 Severity Currently: Severe - 9/10 Pain Intensity: 9 Pain Scale Used: 0-10 Numeric Location: Diffuse - INITALLY, Other - CURRENTLY, RIGHT SIDED Radiates: No Character: Cramping Aggravating Factor(s): Nothing Alleviating Factor(s): Position - LAYING DOWN, Other: - HOT SHOWERS Associated Signs and Symptoms: Positive: Back Pain - LOWER BACK PAIN, Vaginal Discharge - SOME VAGINAL SPOTTING Allergies/Adverse Reactions: Allergies Allergy/AdvReac Type Severity Reaction Status Date / Time aspirin Allergy Swelling Verified 05/09/18 12:36 PMH/Surg Hx/FS Hx/Imm Hx Endocrine/Hematology History: Reports: Hx Anemia Denies: Hx Diabetes, Hx Thyroid Disease Cardiovascular History: Denies: Hx Hypertension Respiratory History: Denies: Hx Asthma, Hx Chronic Obstructive Pulmonary Disease (COPD) GI History: Denies: Hx Ulcer - Surgical History Surgery Procedure, Year, and Place: ; stent post spontaneous pneumothorax - Immunization History Date of Tetanus Vaccine: UTD Date of Influenza Vaccine: NO Infectious Disease History: No Infectious Disease History: Reports: Hx Shingles - had treatment Denies: Hx Clostridium Difficile, Hx Hepatitis, Hx Human Immunodeficiency Virus (HIV), Hx of Known/Suspected MRSA, Hx Tuberculosis, Hx Known/Suspected VRE , Hx Known/Suspected VRSA, History Other Infectious Disease, Traveled Outside the [place] in Last 30 Days - Family History Known Family History: Positive: Hypertension, Diabetes - Social History Alcohol Use: Occasionally Substance Use Type: Reports: None Smoking Status (MU): Light Every Day Tobacco Smoker Type: Cigarettes Amount Used/How Often: 3 cigs daily Review of Systems Negative: Fever Positive: Abdominal Pain Positive: burning, discharge - SOME VAGINAL SPOTTING, frequency - INCREASED. Negative: hematuria, pain All Other Systems Reviewed And Are Negative: Yes Physical Exam - Summary Physical Exam Summary: Appearance: Well-appearing, Well-nourished, lying in bed comfortably Skin: Warm, dry, no obvious rash Eyes: sclera anicteric, no conjunctival pallor ENT: mucous membranes moist, pharynx appears normal Neck: Supple, nontender Respiratory: Clear to auscultation, no signs of respiratory distress Cardiovascular: Normal S1, S2. No murmurs. Normal distal pulses in tibial and radial bilaterally. Abdomen: Soft, nontender, normal active bowel sounds present Musculoskeletal: Normal, Strength/ROM Intact Neurological: A&Ox3, awake and alert, mentation is normal, speech is fluent and appropriate Psychiatric: affect is normal, does not appear anxious or depressed Triage Information Reviewed: Yes Vital Signs On Initial Exam: Initial Vitals Temp Pulse Resp BP Pulse Ox 97.0 F 98 14 117/77 100 05/09/18 12:32 05/09/18 12:32 05/09/18 12:32 05/09/18 12:32 05/09/18 12:32 Vital Signs Reviewed: Yes Diagnostics - Vital Signs Vital Signs Temp Pulse Resp BP Pulse Ox 05/09/18 12:32 97.0 F 98 14 117/77 100 - Laboratory Result Diagrams: 05/09/18 13:52 05/09/18 13:52 Lab Statement: Any lab studies that have been ordered have been reviewed, and results considered in the medical decision making process. - Ultrasound No standard instances Ultrasound Interpretation Completed By: Radiologist - TRANSVAGINAL US: No definitive intrauterine gestational sac evident. In setting of positive test and absence of documented IUP ectopic is not entirely excluded despite absence of visualized adnexal region lesions. Correlate with clinical assessment and quantitative beta hCG. ED PHYSICIAN REVIEWED THIS RADIOLOGY REPORT. Abdominal Pain Fem Course/Dx - Course Course Of Treatment: A 32 y/o female accompanied by a friend presents to the ED c/o abdominal cramping. Currently, the patient is still experiencing abdominal cramping on the right side reaching 9/10 in severity. According to the patient, she did a test a few days ago that came back positive. She stated that she had some cramping at work all day yesterday, and around 2030 - 2100, her cramps became worse, however, she took a hot shower and lay down which made her feel better. She noted that she woke up this morning with worse cramps, but this time on the right side. Additionally, she noticed that the shorts she slept in that night had brown blood. Physical examination was unremarkable. Transvaginal US revealed No definitive intrauterine gestational sac evident. In setting of positive test and absence of documented IUP ectopic is not entirely excluded despite absence of visualized adnexal region lesions. Correlate with clinical assessment and quantitative beta hCG. Hematology, Chemistry, and urinalysis were done. No significant laboratory abnormalities were found. In the ED course, the patient received Tylenol and Motrin. Patient will be discharged with a diagnosis of non-threatening first trimester vaginal bleeding. Patient is to follow up with MARKETING AND DEVELOPMENT COORDINATOR physician in 2 days. Patient is to return to ED for any new or worsening symptoms. Patient is agreeable with this plan. - Diagnoses Provider Diagnoses: First trimester bleeding Discharge - Sign-Out/Discharge Documenting (check all that apply): Patient Departure - DISCHARGE - Discharge Plan Condition: Good Disposition: HOME Patient Education Materials: Non-Threatening First Trimester Vaginal Bleed (ED) Referrals: Nils Sharma MD [Primary Care Provider] - Gay Clifford MD [Medical Doctor] - 2 Days Additional Instructions: Please call your contract serviceman for a followup appt in 2 days. This could also be early next week if you are doing well. RETURN TO ED FOR ANY NEW OR WORSENING SYMPTOMS. - Billing Disposition and Condition Condition: GOOD Disposition: Home - Attestation Statements Document Initiated by Slade: Yes Documenting Scribe: Vasquez Stanton Provider For Whom Slade is Documenting (Include Credential): Torsten Casrto MD Scribe Attestation: Vasquez Garcia scribed for Torsten Castro MD on 05/09/18 at 1933. Scribe Documentation Reviewed: Yes Provider Attestation: The documentation as recorded by the Vasquez negrete accurately reflects the service I personally performed and the decisions made by me, Torsten Castro MD Status of Scribe Document: Viewed
[2018-05-09 13:40] LABS: Urine Appearance Clear; Urine Bacteria Absent (Absent); Urine Bilirubin Negative (Negative); Urine Blood 1+ (Negative); Urine Color Yellow; Urine Glucose Negative (Negative); Urine Ketones Negative (Negative); Urine Nitrite Negative (Negative); Urine Protein Negative (Negative); Urine Red Blood Cell Trace(0-2/hpf) (Absent); Urine Specific Gravity 1.018 (1.010-1.030); Urine Urobilinogen Negative (Negative); Urine White Blood Cell Trace(0-5/hpf) (Absent)
[2018-05-09 14:26] LABS: Albumin 4.4 g/dL (3.2-5.2); Albumin/Globulin Ratio 1.4 (1-3); BUN/Creatinine Ratio 15.6 (8-20); EGFR Non-African American 87.4 (>60); Globulin 3.2 g/dL (2-4); Potassium 3.7 mmol/L (3.5-5.0); Total Bilirubin 0.7 mg/dL (0.2-1.0); Total Protein 7.6 g/dL (6.4-8.9)
[2018-05-09 14:28] LABS: HCG Pregnancy 411.06 mIU/mL
[2018-05-09 14:36] LABS: ABS Basophils 0 10^3/ul (0-0.2); ABS Eosinophils 0.1 10^3/ul (0-0.6); ABS Lymphocytes 1.9 10^3/ul (1.0-4.8); ABS Monocytes 0.5 10^3/ul (0-0.8); ABS Neutrophils 2.7 10^3/ul (1.5-7.7); ABS Nucleated RBC 0 10^3/ul; Eosinophil % 1.9 %; Hematocrit 37 % (35-47); Hemoglobin 12.3 g/dl (12.0-16.0); Mean Corpuscular HGB Conc 33 g/dl (31-36); Mean Corpuscular Hemoglobin 32 pg (27-31); Mean Corpuscular Volume 95 fL (80-97); Mean Platelet Volume 7.7 fL (7.4-10.4); Nucleated Red Blood Cells % 0.1; Platelet Count 247 10^3/ul (150-450); Red Blood Count 3.91 10^6/ul (4.00-5.40); Red Cell Distribution Width 13 % (10.5-15); White Blood Count 5.2 10^3/ul (3.5-10.8)
[2018-05-09] MEDS ORDERED: Ibuprofen TAB* 400 MG PO ONE (14:42)
[2018-05-09] MEDS ORDERED: Ibuprofen TAB* 400 MG ONE (14:45)
[2018-05-09] MEDS ORDERED: Acetaminophen TAB* 325 MG PO ONE (15:14)
[2018-05-09 15:28] VITALS: BP 114/75
== END 2018-05-09 15:27 | disposition home or self-care (01) ==
LOC: ED 12:26
DX: O46.91 Antepartum hemorrhage, unspecified, first trimester (principal); F17.210 Nicotine dependence, cigarettes, uncomplicated; O99.011 Anemia complicating pregnancy, first trimester
CPT/HCPCS: 36415; 76817; 80053; 81003; 81015; 84702; 85025; 86850; 86900; 86901; 87086; 99282; A9270-GY

== ENCOUNTER 2018-06-15 15:03 | Emergency (ER) | payer OTHER ==
[2018-06-15 15:46] LABS: ABS Basophils 0 10^3/ul (0-0.2); ABS Eosinophils 0.1 10^3/ul (0-0.6); ABS Lymphocytes 2.1 10^3/ul (1.0-4.8); ABS Monocytes 0.6 10^3/ul (0-0.8); ABS Neutrophils 4.8 10^3/ul (1.5-7.7); ABS Nucleated RBC 0 10^3/ul; Eosinophil % 1.5 %; Hematocrit 35 % (35-47); Lymphocyte % 26.9 %; Mean Corpuscular HGB Conc 34 g/dl (31-36); Mean Corpuscular Hemoglobin 32 pg (27-31); Mean Corpuscular Volume 94 fL (80-97); Mean Platelet Volume 7.2 fL (7.4-10.4); Nucleated Red Blood Cells % 0; Platelet Count 258 10^3/ul (150-450); Red Blood Count 3.72 10^6/ul (4.00-5.40); Red Cell Distribution Width 13 % (10.5-15); White Blood Count 7.7 10^3/ul (3.5-10.8)
[2018-06-15 15:55] LABS: Activated Partial Thrombo Time 32.2 seconds (26.0-36.3); INR 1.06 (0.77-1.02)
[2018-06-15 16:05] LABS: Albumin 4.4 g/dL (3.2-5.2); Albumin/Globulin Ratio 1.7 (1-3); BUN/Creatinine Ratio 17.6 (8-20); Calcium 9.3 mg/dL (8.6-10.3); EGFR African American 122.1 (>60); EGFR Non-African American 100.9 (>60); Globulin 2.6 g/dL (2-4); Potassium 4.2 mmol/L (3.5-5.0); Total Bilirubin 0.4 mg/dL (0.2-1.0)
--- NOTE | 2018-06-15 16:23 | ED ---
- HPI Summary HPI Summary: Patient is a 32-year-old female who presents emergency department and early . Patient states she is roughly 8 weeks . She was seen at [facility] today for an ultrasound and ophthalmic medical technician was concerned for possible ectopic . Patient denies abdominal pain, cramping, vaginal bleeding or discharge. She denies urinary symptoms or any other complaints. A2. Symptoms are moderate in severity. Pt. sent to ER for further ultrasonography. - History of Current Complaint Chief Complaint: EDOBProblems Stated Complaint: 8 WEEKS PREG/OB PROBLEMS Time Seen by Provider: 06/15/18 16:12 Hx Obtained From: Patient Pain Intensity: 0 - Assessment Hx Now: No Hx Hysterectomy: No - Allergies/Home Medications Allergies/Adverse Reactions: Allergies Allergy/AdvReac Type Severity Reaction Status Date / Time aspirin Allergy Swelling Verified 06/15/18 15:10 PMH/Surg Hx/FS Hx/Imm Hx Previously Healthy: Yes Endocrine/Hematology History: Reports: Hx Anemia Denies: Hx Diabetes, Hx Thyroid Disease Cardiovascular History: Denies: Hx Hypertension Respiratory History: Denies: Hx Asthma, Hx Chronic Obstructive Pulmonary Disease (COPD) GI History: Denies: Hx Ulcer - Surgical History Surgery Procedure, Year, and Place: ; stent post spontaneous pneumothorax - Immunization History Date of Tetanus Vaccine: UTD Date of Influenza Vaccine: NO Infectious Disease History: No Infectious Disease History: Reports: Hx Shingles - had treatment Denies: Hx Clostridium Difficile, Hx Hepatitis, Hx Human Immunodeficiency Virus (HIV), Hx of Known/Suspected MRSA, Hx Tuberculosis, Hx Known/Suspected VRE , Hx Known/Suspected VRSA, History Other Infectious Disease, Traveled Outside the [place] in Last 30 Days - Family History Known Family History: Positive: Hypertension, Diabetes - Social History Occupation: Unemployed Lives: With Family Alcohol Use: Occasionally Substance Use Type: Reports: None Smoking Status (MU): Light Every Day Tobacco Smoker Type: Cigarettes Amount Used/How Often: 3 cigs daily Review of Systems Constitutional: Negative Negative: Fever, Chills Cardiovascular: Negative Respiratory: Negative Gastrointestinal: Negative Negative: Abdominal Pain Genitourinary: Negative Negative: dysuria, discharge All Other Systems Reviewed And Are Negative: Yes Physical Exam - Physical Exam Triage Information Reviewed: Yes Vital Signs Reviewed: Yes Appearance: Positive: Well-Appearing - Pt. sitting on bed in NAD. SO present. Skin: Positive: Warm, Dry Head/Face: Positive: Normal Head/Face Inspection Eyes: Positive: Normal, EOMI Neck: Positive: Supple Respiratory/Lung Sounds: Positive: Clear to Auscultation, Breath Sounds Present Cardiovascular: Positive: Normal, RRR Abdomen Description: Positive: Nontender, Soft Neurological: Positive: Normal, CN Intact II-III Diagnostics - Vital Signs Vital Signs Temp Pulse Resp BP Pulse Ox 06/15/18 15:06 98.8 F 91 16 119/69 99 - Laboratory Lab Results: Lab Results 06/15/18 06/15/18 06/15/18 Range/Units 15:38 15:38 15:38 WBC 7.7 (3.5-10.8) 10^3/ul RBC 3.72 L (4.00-5.40) 10^6/ul Hgb 12.0 (12.0-16.0) g/dl Hct 35 (35-47) % MCV 94 (80-97) fL MCH 32 H (27-31) pg MCHC 34 (31-36) g/dl RDW 13 (10.5-15) % Plt Count 258 (150-450) 10^3/ul MPV 7.2 L (7.4-10.4) fL Neut % (Auto) 62.7 % Lymph % (Auto) 26.9 % [place] % (Auto) 8.3 % Eos % (Auto) 1.5 % Baso % (Auto) 0.6 % Absolute Neuts (auto) 4.8 (1.5-7.7) 10^3/ul Absolute Lymphs (auto) 2.1 (1.0-4.8) 10^3/ul Absolute Monos (auto) 0.6 (0-0.8) 10^3/ul Absolute Eos (auto) 0.1 (0-0.6) 10^3/ul Absolute Basos (auto) 0 (0-0.2) 10^3/ul Absolute Nucleated RBC 0 10^3/ul Nucleated RBC % 0 INR (Anticoag Therapy) 1.06 H (0.77-1.02) APTT 32.2 (26.0-36.3) seconds Sodium 136 (135-145) mmol/L Potassium 4.2 (3.5-5.0) mmol/L Chloride 105 (101-111) mmol/L Carbon Dioxide 26 (22-32) mmol/L Anion Gap 5 (2-11) mmol/L BUN 12 (6-24) mg/dL Creatinine 0.68 (0.51-0.95) mg/dL Est GFR ( Amer) 122.1 (>60) Est GFR (Non-Af Amer) 100.9 (>60) BUN/Creatinine Ratio 17.6 (8-20) Glucose 92 (70-100) mg/dL Calcium 9.3 (8.6-10.3) mg/dL Total Bilirubin 0.40 (0.2-1.0) mg/dL AST 19 (13-39) U/L ALT 26 (7-52) U/L Alkaline Phosphatase 44 (34-104) U/L Total Protein 7.0 (6.4-8.9) g/dL Albumin 4.4 (3.2-5.2) g/dL Globulin 2.6 (2-4) g/dL Albumin/Globulin Ratio 1.7 (1-3) Beta HCG, Quant Pending Blood Type Antibody Screen 06/15/18 Range/Units 15:38 WBC (3.5-10.8) 10^3/ul RBC (4.00-5.40) 10^6/ul Hgb (12.0-16.0) g/dl Hct (35-47) % MCV (80-97) fL MCH (27-31) pg MCHC (31-36) g/dl RDW (10.5-15) % Plt Count (150-450) 10^3/ul MPV (7.4-10.4) fL Neut % (Auto) % Lymph % (Auto) % [place] % (Auto) % Eos % (Auto) % Baso % (Auto) % Absolute Neuts (auto) (1.5-7.7) 10^3/ul Absolute Lymphs (auto) (1.0-4.8) 10^3/ul Absolute Monos (auto) (0-0.8) 10^3/ul Absolute Eos (auto) (0-0.6) 10^3/ul Absolute Basos (auto) (0-0.2) 10^3/ul Absolute Nucleated RBC 10^3/ul Nucleated RBC % INR (Anticoag Therapy) (0.77-1.02) APTT (26.0-36.3) seconds Sodium (135-145) mmol/L Potassium (3.5-5.0) mmol/L Chloride (101-111) mmol/L Carbon Dioxide (22-32) mmol/L Anion Gap (2-11) mmol/L BUN (6-24) mg/dL Creatinine (0.51-0.95) mg/dL Est GFR ( Amer) (>60) Est GFR (Non-Af Amer) (>60) BUN/Creatinine Ratio (8-20) Glucose (70-100) mg/dL Calcium (8.6-10.3) mg/dL Total Bilirubin (0.2-1.0) mg/dL AST (13-39) U/L ALT (7-52) U/L Alkaline Phosphatase (34-104) U/L Total Protein (6.4-8.9) g/dL Albumin (3.2-5.2) g/dL Globulin (2-4) g/dL Albumin/Globulin Ratio (1-3) Beta HCG, Quant Blood Type O Positive Antibody Screen Pending Result Diagrams: 06/15/18 15:38 06/15/18 15:38 Lab Statement: Any lab studies that have been ordered have been reviewed, and results considered in the medical decision making process. Course/Dx - Course Course Of Treatment: Pt. presenting for u/s in early . She has no pain or bleeding at this point. Labs unremarkable. Elevate beta hcg. Transvaginal reading per radiologist: IMPRESSION: #. The constellation of findings is most consistent with a nonviable intrauterine. gestation with estimated gestational age of 9 weeks 3 days based on the mean gestational. sac diameter. #. No suspicious extraovarian adnexal region lesions or free fluid evident. U/S discussed with Dr. Song and they will f.u with pt. in 1-2 weeks to discuss options. Results discussed with pt. and SO. They will schedule a f.u apt. with OB. To return to ER for fever, signifiant pain/bleeding. Pt. agrees and understands plan. - Differential Diagnosis/HQI/PQRI: Missed , Ectopic , Intrauterine - Diagnoses Provider Diagnoses: Missed Discharge - Sign-Out/Discharge Documenting (check all that apply): Patient Departure Patient Received Moderate/Deep Sedation with Procedure: No - Discharge Plan Condition: Good Disposition: HOME Patient Education Materials: Miscarriage (ED) Referrals: Randee Song MD [Medical Doctor] - Additional Instructions: Call Dr. Song's office Monday to schedule an appointment within 1-2 weeks Ultrasound today does not show a heart beat meaning you have had a miscarriage You develop pelvic cramping and bleeding over the next week Return to ER for extreme pain, excessive bleeding, fever or if concerned - Billing Disposition and Condition Condition: GOOD Disposition: Home
[2018-06-15 16:48] LABS: Urine Appearance Clear; Urine Bilirubin Negative (Negative); Urine Blood Negative (Negative); Urine Color Yellow; Urine Glucose Negative (Negative); Urine Ketones Negative (Negative); Urine Nitrite Negative (Negative); Urine Protein Negative (Negative); Urine Specific Gravity 1.013 (1.010-1.030); Urine Urobilinogen Negative (Negative)
[2018-06-15 17:58] VITALS: BP 116/68
== END 2018-06-15 17:57 | disposition home or self-care (01) ==
LOC: ED 15:03
DX: O02.1 Missed abortion (principal); Z34.91 Encounter for supervision of normal pregnancy, unspecified, first trimester; F17.210 Nicotine dependence, cigarettes, uncomplicated
CPT/HCPCS: 36415; 76817; 80053; 81003; 84702; 85025; 85610; 85730; 86850; 86900; 86901; 99282

== ENCOUNTER 2018-10-31 09:23 | Emergency (ER) | payer OTHER ==
[2018-10-31] MEDS ORDERED: Ondansetron ODT TAB* 4 MG SL ONE (10:03)
[2018-10-31 10:14] LABS: ABS Eosinophils 0.1 10^3/ul (0-0.6); ABS Lymphocytes 1.6 10^3/ul (1.0-4.8); ABS Monocytes 0.4 10^3/ul (0-0.8); ABS Neutrophils 3.3 10^3/ul (1.5-7.7); Eosinophil % 1.5 %; Hematocrit 34 % (35-47); Hemoglobin 11.9 g/dL (12.0-16.0); Lymphocyte % 29.7 %; Mean Corpuscular HGB Conc 35 g/dL (31-36); Mean Corpuscular Hemoglobin 32 pg (27-31); Mean Corpuscular Volume 93 fL (80-97); Mean Platelet Volume 7.5 fL (7.4-10.4); Nucleated Red Blood Cells % 0.1; Platelet Count 229 10^3/uL (150-450); Red Blood Count 3.72 10^6 /uL (3.70-4.87); Red Cell Distribution Width 13 % (10-15); White Blood Count 5.4 10^3/uL (3.5-10.8)
[2018-10-31 10:31] LABS: Albumin 4.2 g/dL (3.2-5.2); Albumin/Globulin Ratio 1.6 (1-3); BUN/Creatinine Ratio 18.5 (8-20); Calcium 9.4 mg/dL (8.6-10.3); EGFR African American 159.3 (>60); EGFR Non-African American 131.7 (>60); Globulin 2.6 g/dL (2-4); Magnesium 1.8 mg/dL (1.9-2.7); Potassium 3.8 mmol/L (3.5-5.0); Total Bilirubin 0.3 mg/dL (0.2-1.0); Total Protein 6.8 g/dL (6.4-8.9)
--- NOTE | 2018-10-31 11:53 | ED ---
- HPI Summary HPI Summary: Patient is a 32-year-old female currently presenting to the ED with concern of . She states she is "high risk" and would like an ultrasound. She states she has been having bilateral lower quadrant pain without vaginal bleeding or discharge. She does have a history of spontaneous abortions. She is concerned with this and does not have care or an SALES TRAINING COORDINATOR at this time. She denies any fevers, sweats, chills. She does state yesterday when she was outside watching a baseball game, she felt very dizzy and had a near syncopal episode. She continues to eat and drink okay. She denies any vomiting, however has had intermittent nausea throughout the . - History of Current Complaint Chief Complaint: EDOBProblems Stated Complaint: SWOLLEN/NUMBNESS IN HANDS- Time Seen by Provider: 10/31/18 09:35 Hx Obtained From: Patient Chief Complaint: Concern for Embryonic Dem, Pain Onset/Duration: Started Days Ago Timing: Constant Severity: Mild Current Severity: None Pain Intensity: 0 Location of Pain: None Associated Signs and Symptoms: Positive: Negative - Assessment Hx Now: No Hx Hysterectomy: No - Allergies/Home Medications Allergies/Adverse Reactions: Allergies Allergy/AdvReac Type Severity Reaction Status Date / Time aspirin Allergy Swelling Verified 10/31/18 09:34 PMH/Surg Hx/FS Hx/Imm Hx Previously Healthy: Yes Endocrine/Hematology History: Reports: Hx Anemia Denies: Hx Diabetes, Hx Thyroid Disease Cardiovascular History: Denies: Hx Hypertension Respiratory History: Denies: Hx Asthma, Hx Chronic Obstructive Pulmonary Disease (COPD) GI History: Denies: Hx Ulcer - Surgical History Surgery Procedure, Year, and Place: ; stent post spontaneous pneumothorax - Immunization History Date of Tetanus Vaccine: UTD Date of Influenza Vaccine: NO Hx Pertussis Vaccination: No Immunizations Up to Date: Yes Infectious Disease History: No Infectious Disease History: Reports: Hx Shingles - had treatment Denies: Hx Clostridium Difficile, Hx Hepatitis, Hx Human Immunodeficiency Virus (HIV), Hx of Known/Suspected MRSA, Hx Tuberculosis, Hx Known/Suspected VRE , Hx Known/Suspected VRSA, History Other Infectious Disease, Traveled Outside the [place] in Last 30 Days - Family History Known Family History: Positive: Hypertension, Diabetes - Social History Occupation: Unemployed Lives: With Family Alcohol Use: None Hx Substance Use: No Substance Use Type: Reports: None Smoking Status (MU): Light Every Day Tobacco Smoker Type: Cigarettes Amount Used/How Often: 3 cigs daily Review of Systems Constitutional: Negative Negative: Fever, Chills, Fatigue, Skin Diaphoresis Negative: Palpitations, Chest Pain Negative: Shortness Of Breath, Cough Positive: Abdominal Pain. Negative: Vomiting, Diarrhea, Nausea Negative: Arthralgia, Myalgia Negative: Rash, Bruising Neurological: Negative Positive: Syncope - near syncope All Other Systems Reviewed And Are Negative: Yes Physical Exam - Physical Exam Triage Information Reviewed: Yes Vital Signs Reviewed: Yes Appearance: Positive: Well-Appearing, Well-Nourished Skin: Positive: Warm, Skin Color Reflects Adequate Perfusion Head/Face: Positive: Normal Head/Face Inspection Eyes: Positive: EOMI, [place], Conjunctiva Clear Neck: Positive: No Lymphadenopathy Respiratory/Lung Sounds: Positive: Clear to Auscultation, Breath Sounds Present Cardiovascular: Positive: RRR, Pulses are Symmetrical in both Upper and Lower Extremities Musculoskeletal: Positive: Normal, Strength/ROM Intact Neurological: Positive: Sensory/Motor Intact, Speech Normal Psychiatric: Positive: Affect/Mood Appropriate Diagnostics - Vital Signs Vital Signs Temp Pulse Resp BP Pulse Ox 10/31/18 09:31 98.7 F 73 16 123/89 99 - Laboratory Lab Results: Lab Results 10/31/18 10/31/18 10/31/18 Range/Units 09:57 09:57 09:57 WBC 5.4 (3.5-10.8) 10^3/uL RBC 3.72 (3.70-4.87) 10^6 /uL Hgb 11.9 L (12.0-16.0) g/dL Hct 34 L (35-47) % MCV 93 (80-97) fL MCH 32 H (27-31) pg MCHC 35 (31-36) g/dL RDW 13 (10-15) % Plt Count 229 (150-450) 10^3/uL MPV 7.5 (7.4-10.4) fL Neut % (Auto) 61.3 % Lymph % (Auto) 29.7 % [place] % (Auto) 7.0 % Eos % (Auto) 1.5 % Baso % (Auto) 0.5 % Absolute Neuts (auto) 3.3 (1.5-7.7) 10^3/ul Absolute Lymphs (auto) 1.6 (1.0-4.8) 10^3/ul Absolute Monos (auto) 0.4 (0-0.8) 10^3/ul Absolute Eos (auto) 0.1 (0-0.6) 10^3/ul Absolute Basos (auto) 0.0 (0-0.2) 10^3/ul Absolute Nucleated RBC 0.0 10^3/ul Nucleated RBC % 0.1 Sodium 135 (135-145) mmol/L Potassium 3.8 (3.5-5.0) mmol/L Chloride 104 (101-111) mmol/L Carbon Dioxide 25 (22-32) mmol/L Anion Gap 6 (2-11) mmol/L BUN 10 (6-24) mg/dL Creatinine 0.54 (0.51-0.95) mg/dL Est GFR ( Amer) 159.3 (>60) Est GFR (Non-Af Amer) 131.7 (>60) BUN/Creatinine Ratio 18.5 (8-20) Glucose 95 (70-100) mg/dL Lactic Acid 0.9 (0.5-2.0) mmol/L Calcium 9.4 (8.6-10.3) mg/dL Magnesium 1.8 L (1.9-2.7) mg/dL Total Bilirubin 0.30 (0.2-1.0) mg/dL AST 17 (13-39) U/L ALT 20 (7-52) U/L Alkaline Phosphatase 45 (34-104) U/L Troponin I 0.00 (<0.04) ng/mL Total Protein 6.8 (6.4-8.9) g/dL Albumin 4.2 (3.2-5.2) g/dL Globulin 2.6 (2-4) g/dL Albumin/Globulin Ratio 1.6 (1-3) Beta HCG, Quant 971503.00 mIU/mL Result Diagrams: 10/31/18 09:57 10/31/18 09:57 Lab Statement: Any lab studies that have been ordered have been reviewed, and results considered in the medical decision making process. Course/Dx - Course Course Of Treatment: On arrival into the ED, the patient is very tearful. She was requesting an ultrasound stating she is high risk. dot compliance coordinator is at bedside due to the patient's concerns. She states she is unsure how far along she is and is concerned over the viability of her . Labs are obtained which show an hCG of 123,000. Due to her near syncopal episode yesterday, eaten EKG was obtained which shows normal sinus rhythm. Troponin 0.00. She denies any vaginal discharge or bleeding. She has been otherwise healthy. She has not been taking vitamins or having care otherwise. Labs otherwise normal. Ultrasound obtained: 9 weeks 2 days per tech. Provider called SALES TRAINING COORDINATOR services of [facility] and secured an appointment on 12/11/18 at 2 PM for an ultrasound and an appointment with Ana Maria Hooks. - Differential Diagnosis/HQI/PQRI: Ectopic , Intrauterine , Early - Diagnoses Provider Diagnoses: Discharge - Sign-Out/Discharge Documenting (check all that apply): Patient Departure Patient Received Moderate/Deep Sedation with Procedure: No - Discharge Plan Condition: Stable Disposition: HOME Patient Education Materials: (ED) Referrals: No Primary Care Phys,NOPCP [Primary Care Provider] - Ana Maria Hooks CNM [Certified Nurse Flag Signalman] - Additional Instructions: 12/11/18 with Ana Maria Hooks Ultrasound appt at 2pm, appt following Arrive at 1:45p Start taking vitamins immediately As discussed you are [address] of [place] today - Billing Disposition and Condition Condition: STABLE Disposition: Home
[2018-10-31 12:59] VITALS: BP 114/65
== END 2018-10-31 12:58 | disposition home or self-care (01) ==
LOC: ED 09:23
DX: Z34.91 Encounter for supervision of normal pregnancy, unspecified, first trimester (principal); Z3A.09 9 weeks gestation of pregnancy; R10.30 Lower abdominal pain, unspecified; F17.210 Nicotine dependence, cigarettes, uncomplicated; O99.331 Smoking (tobacco) complicating pregnancy, first trimester
CPT/HCPCS: 36415; 76815; 80053; 83605; 83735; 84484; 84702; 85025; 93005; 99282; A9270-GY

== ENCOUNTER → 2018-11-16 17:06 | Emergency (ER) | payer OTHER ==
--- OUTSIDE RECORDS SUMMARY | 2018-11-16 17:21 | XMS REPORT | Continuity of Care Document ---
:1985 External Reference #:[id number] Author Name Jennifer Cruz Care Team Providers Name Role Phone Sonya Mariscal MD Primary Care Physician Unavailable Payers Date Identification Numbers Payment Provider Subscriber Policy Number: [id number] [employer] Denice Jacinto PayID: [id number] [address] [address] [place] [address] Problems Active Problems Provider Date Mattie Petty MD Onset: 11/06/2018 Social History Type Date Description Comments Sex Unknown ETOH Use Occasionally consumed alcohol in the past Tobacco Use Start: Unknown End: Patient is a former smoker stopped 2 year, 3-4 Unknown cigarettes per day for 10 years Smoking Status Reviewed: 11/06/18 Patient is a former smoker stopped 2 year , 3-4 cigarettes per day for 10 years Allergies, Adverse Reactions, Alerts Active Allergies Reaction Severity Comments Date Aspirin Facial swelling, Hives, Tongue Noted when age 16 11/06/2018 swelling Doxycycline Chest discomfort, Facial noted in 201511/06/2018 swelling, Tongue swelling Medications Active Medications SIG Qnty Indications Ordering Provider Date Adult Gummy/Dha/Folic Acid Unknown 0.4-25mg Chewtabs Vital Signs Date Vital Result Comment 11/06/2018 2:53pm Heart Rate 74 /min BP Systolic 105 mmHg left arm BP Diastolic 66 mmHg left arm BP Systolic Standing 115 mmHg left arm BP Diastolic Standing 69 mmHg left arm Body Temperature 98.1 F O2 % BldC Oximetry 99 %
--- OUTSIDE RECORDS SUMMARY | 2018-11-16 17:21 | XMS REPORT | Continuity of Care Document ---
:1985 External Reference #:[id number] Author Name Jennifer Cruz Care Team Providers Name Role Phone Sonya Mariscal MD Primary Care Physician Unavailable Payers Date Identification Numbers Payment Provider Subscriber Policy Number: [id number] [employer] Medicaid Claudia Martini PayID: [id number] [address] [address] [place] [address] Problems Active Problems Provider Date Mattie Petty MD Onset: 11/06/2018 Syncope Mattie Petty MD Onset: 11/06/2018 Social History Type Date Description Comments Sex Unknown Lives With Male Partner ETOH Use Occasionally consumed alcohol in the past Tobacco Use Start: Unknown End: Patient is a former smoker stopped 2 year, 3-4 Unknown cigarettes per day for 10 years Smoking Status Reviewed: 11/08/18 Patient is a former smoker stopped 2 year , 3-4 cigarettes per day for 10 years Allergies, Adverse Reactions, Alerts Active Allergies Reaction Severity Comments Date Aspirin Facial swelling, Hives, Tongue Noted when age 16 11/06/2018 swelling Doxycycline Chest discomfort, Facial noted in 201511/06/2018 swelling, Tongue swelling Medications Active Medications SIG Qnty Indications Ordering Date Provider Albuterol Sulfate HFA take 1 puff every 8.500gm Clyde Kemp MD 11/08/2018 6 hours as needed 108(90Base) mcg/Act for shortness of Aerosol breath or wheezing. Maalox Advanced take 1 tab daily 30units Clyde Kemp MD 11/08/2018 Maximum Strength 1000-60mg Chewtabs Pantoprazole Sodium 1 by mouth every 30tabs Clyde Kemp MD 11/08/[address] Ibuprofen 200 take 1 tab every 30tabs Clyde Kemp MD 11/08/2018 200mg 8 hours as Tablets needed. Adult Unknown Gummy/Dha/Folic Acid 0.4-25mg Chewtabs Vital Signs Date Vital Result Comment 11/08/2018 2:26pm Heart Rate 68 /min BP Systolic 129 mmHg BP Diastolic 76 mmHg Respiratory Rate 30 /min Body Temperature 97.6 F O2 % BldC Oximetry 100 % 11/06/2018 2:53pm Heart Rate 74 /min BP Systolic 105 mmHg left arm BP Diastolic 66 mmHg left arm BP Systolic Standing 115 mmHg left arm BP Diastolic Standing 69 mmHg left arm Body Temperature 98.1 F O2 % BldC Oximetry 99 % Results Test Date Facility Test Result H/L Range Note Order 11/08/2018 [facility] In-House EKG <pending> Abo/RH Type 11/07/2018 [facility] Patient Blood O Positive [address] [place] [address] [phone] Laboratory test 11/07/2018 [facility] Rubella Screen Immune Immune finding [address] [place] [address] [phone] Total Protein Random Urine 14 mg/dL Urine Culture And 11/07/2018 [facility] Urine Culture SEE RESULT [address] [place] [address] [phone] Laboratory test 11/06/2018 [facility] Rubella Screen <pending> finding [address] [place] [address] [phone] Laboratory test 11/06/2018 [facility] Syphillis Igg <pending> finding [address] W/[place] [address] [phone] Hepatitis B Surface Ag <pending> Total Protein Random Urine <pending> Laboratory test 11/06/2018 [facility] Abo/RH Type Simon <pending> finding [address] [place] [address] [phone] 1 STATE, INCIDENTAL 2 SEE RESULT BELOW Name: CLAUDIA MARTINI : [address]: Mattie Petty MD Acct: [id number] Unit: [id number] AGE: 32 Location: LAB Re11/07/18 SEX: F Status: REG REF SPEC: [id number] MARAL: 11/07/18-[address] [facility] [address]: Mattie Petty MD REQ: [id number] RECD: 11/07/18 STATUS: COMP _ SOURCE: URINE SPDESC: ORDERED: Urine Culture QUERIES: Urine Source: Random Procedure Result Reported Site Urine Culture Final 11/08/18- 1330 ML No Growth (<1,000 CFU/mL) * ML - Main Lab . END OF REPORT DEPARTMENT OF PATHOLOGY, [address] [place] [address] Scot Blue M.D. Director [facility] # [id number] Procedures Date Code Description Status 11/08/2018 56909 EKG Tracing & Interpretation Completed Plan of Treatment 11/08/2018 - Mattie Petty, MDR07.9 Chest pain, unspecifiedComments:ECG in house shows Run blood tests to rule out cardiac event, pancreatitis or inflammtory pathology
[2018-11-16 18:14] VITALS: BP 131/79
== END | disposition left against medical advice (07) ==
LOC: ED 17:06
DX: O26.91 Pregnancy related conditions, unspecified, first trimester (principal); Z3A.00 Weeks of gestation of pregnancy not specified; Z53.21 Procedure and treatment not carried out due to patient leaving prior to being seen by health care provider

== ENCOUNTER 2018-11-17 23:23 | Emergency (ER) | payer OTHER ==
--- NOTE | 2018-11-17 23:47 | ED ---
Complex/Multi-Sys Presentation - HPI Summary HPI Summary: A 32 y/o female presents to [facility] with a chief complaint of reportedly having an abnormal ultrasound on 10/31/18. She states that she did not know quickly because she changed her phones, and did not realize this until she was sent a letter. Currently she states that she has no problems, just some cramping. She rates her pain as a 10/10 in severity. The patient says that she could not get in to see her OB until 12/13/18 so she was reportedly sent to the ED for an ultrasound. She came to the ED yesterday but then reportedly left without being seen. Now she is back in the ED tonight. She also reports right middle finger pain after reportedly having a couch dropped on her. - History Of Current Complaint Chief Complaint: EDExtremityUpper Hx Obtained From: Patient Onset/Duration: Sudden Onset, Lasting Weeks, Still Present Timing: Constant, Weeks Severity Currently: Severe Severity Initially: Severe Character: Unable To Describe Aggravating Factor(s): nothing Alleviating Factor(s): nothing Associated Signs And Symptoms: Positive: Abdominal Pain - cramping, Other - positive: finger pain. Negative: Fever - Allergies/Home Medications Allergies/Adverse Reactions: Allergies Allergy/AdvReac Type Severity Reaction Status Date / Time aspirin Allergy Swelling Verified 10/31/18 09:34 shellfish derived Allergy Anaphylatic Verified 11/17/18 23:29 Shock Home Medications: Home Medications Pnv No.103/Folic/Om3s/Fish Oil [ Gummies] 1 tab PO DAILY 11/18/18 [ History Confirmed 11/18/18] PMH/Surg Hx/FS Hx/Imm Hx Endocrine/Hematology History: Reports: Hx Anemia Denies: Hx Diabetes, Hx Thyroid Disease Cardiovascular History: Denies: Hx Hypertension Respiratory History: Denies: Hx Asthma, Hx Chronic Obstructive Pulmonary Disease (COPD) GI History: Denies: Hx Ulcer - Surgical History Surgery Procedure, Year, and Place: ; stent post spontaneous pneumothorax - Immunization History Date of Tetanus Vaccine: UTD Date of Influenza Vaccine: NO Infectious Disease History: No Infectious Disease History: Reports: Hx Shingles - had treatment Denies: Hx Clostridium Difficile, Hx Hepatitis, Hx Human Immunodeficiency Virus (HIV), Hx of Known/Suspected MRSA, Hx Tuberculosis, Hx Known/Suspected VRE , Hx Known/Suspected VRSA, History Other Infectious Disease, Traveled Outside the [place] in Last 30 Days - Family History Known Family History: Positive: Hypertension, Diabetes - Social History Alcohol Use: None Hx Substance Use: No Substance Use Type: Reports: None Hx Tobacco Use: Yes Smoking Status (MU): Light Every Day Tobacco Smoker Type: Cigarettes Amount Used/How Often: 3 cigs daily Review of Systems Positive: Other - positive: Pt reports an abnormal ultrasound on 10/31. Negative: Fever Positive: Abdominal Pain - cramping Positive: Other - positive: finger pain on right hand All Other Systems Reviewed And Are Negative: Yes Physical Exam - Summary Physical Exam Summary: Appearance: Well-appearing, Well-nourished, lying in bed comfortably Skin: Warm, dry, no obvious rash Eyes: sclera anicteric, no conjunctival pallor ENT: mucous membranes moist, pharynx appears normal Neck: Supple, nontender Respiratory: Clear to auscultation, no signs of respiratory distress Cardiovascular: Normal S1, S2. No murmurs. Normal distal pulses in tibial and radial bilaterally. Abdomen: Soft, nontender, normal active bowel sounds present Musculoskeletal: Strength/ROM Intact, tenderness over right middle finger over MCP joint to middle phalanx without swelling or deformity. Neurological: A&Ox3, awake and alert, mentation is normal, speech is fluent and appropriate Psychiatric: affect is normal, does not appear anxious or depressed Triage Information Reviewed: Yes Vital Signs On Initial Exam: Initial Vitals Temp Pulse Resp BP Pulse Ox 98 F 80 16 135/81 100 11/17/18 23:26 11/17/18 23:26 11/17/18 23:26 11/17/18 23:26 11/17/18 23:26 Vital Signs Reviewed: Yes Diagnostics - Vital Signs Vital Signs Temp Pulse Resp BP Pulse Ox 11/17/18 23:26 98 F 80 16 135/81 100 - Laboratory Lab Statement: Any lab studies that have been ordered have been reviewed, and results considered in the medical decision making process. - Radiology finger x-ray Radiology Interpretation Completed By: ED Physician Summary of Radiographic Findings: no fracture. Pending official imaging report. - Ultrasound No standard instances Ultrasound Interpretation Completed By: Radiologist Summary of Ultrasound Findings: ultrasound impression: Viable intrauterine with an ultrasound age of 12 weeks 0 days which. is concordant with the clinical age. ED physician has reviewed this imaging report. Complex Multi-Symp Course/Dx Course Of Treatment: A 32 y/o female presents to [facility] with a chief complaint of reportedly having an abnormal ultrasound on 10/31/18. She also reports right middle finger pain. The physical exam revealed tenderness over right middle finger over MCP joint to middle phalanx without swelling or deformity. Finger x-ray showed no fracture. ultrasound impression: Viable intrauterine with an ultrasound age of 12 weeks 0 days which. is concordant with the clinical age. The patient will be discharged and follow up with OB. The patient is agreeable with this plan. - Diagnoses Provider Diagnoses: Finger contusion Discharge - Sign-Out/Discharge Documenting (check all that apply): Patient Departure - DC Patient Received Moderate/Deep Sedation with Procedure: No - Discharge Plan Condition: Good Disposition: HOME Patient Education Materials: Contusion in Adults (ED) Referrals: Randee Song MD [Medical Doctor] - Additional Instructions: The xrays of the finger look ok, no broken bones. The US done tonight looks like everything is good with the . - Billing Disposition and Condition Condition: GOOD Disposition: Home - Attestation Statements Document Initiated by Scribe: Yes Documenting Scribe: Walker Abebe Provider For Whom Scribe is Documenting (Include Credential): Torsten Castro MD Scribe Attestation: IWalker, scribed for Torsten Castro MD on 11/18/18 at 0515. Scribe Documentation Reviewed: Yes Provider Attestation: The documentation as recorded by the Walker negrete accurately reflects the service I personally performed and the decisions made by me, Torsten Castro MD Status of Scribe Document: Viewed
[2018-11-18 00:51] VITALS: BP 132/80
== END 2018-11-18 00:50 | disposition home or self-care (01) ==
LOC: ED 23:23
DX: S60.031A Contusion of right middle finger without damage to nail, initial encounter (principal); W22.8XXA Striking against or struck by other objects, initial encounter; Y92.9 Unspecified place or not applicable; Z34.91 Encounter for supervision of normal pregnancy, unspecified, first trimester; Z3A.12 12 weeks gestation of pregnancy; F17.210 Nicotine dependence, cigarettes, uncomplicated
CPT/HCPCS: 73140; 76801; 99282

== ENCOUNTER 2019-05-14 08:45 | Emergency (ER) | payer OTHER ==
[2019-05-14 09:30] VITALS: BP 130/84
[2019-05-14 09:56] LABS: Influenza A Molecular NEGATIVE (Negative); Influenza B Molecular NEGATIVE (Negative)
--- NOTE | 2019-05-14 10:12 | UC ---
FLU HPI - HPI Summary HPI Summary: 33-year-old female who is 37 weeks presents with 6 day history of nasal congestion, sinus pressure, ear fullness, sore throat, and dry nonproductive cough. States 2 days ago started with increased fatigue, body aches, and chills. Noting decreased hearing in the left ear. Last night had a single episode of post-tussive emesis. Has had a couple episodes of loose stool. Denies fever, ear drainage, dysphagia, chest pain, shortness of breath, nausea, abdominal pain, cramping, or vaginal discharge. - History of Current Complaint Chief Complaint: UCGeneralIllness Stated Complaint: EAR PLUGGED VOMITING DIARRHEA FEVER SORE THROAT CO Time Seen by Provider: 05/14/19 10:06 Hx Obtained From: Patient Hx Last Menstrual Period: [id number] ?: Yes - 37 weeks Pain Intensity: 0 - Allergy/Home Medications Allergies/Adverse Reactions: Allergies Allergy/AdvReac Type Severity Reaction Status Date / Time aspirin Allergy Swelling Verified 05/14/19 09:30 shellfish derived Allergy Anaphylatic Verified 05/14/19 09:30 Shock PMH/Surg Hx/FS Hx/Imm Hx Previously Healthy: Yes - Denies significant PMH - Surgical History Surgical History: Yes Surgery Procedure, Year, and Place: ; stent post spontaneous pneumothorax - Family History Known Family History: Positive: Hypertension, Diabetes - Social History Occupation: Unemployed Lives: With Family Alcohol Use: None Substance Use Type: None Smoking Status (MU): Never Smoked Tobacco Type: Cigarettes Amount Used/How Often: 3 cigs daily Household Exposure Type: Cigarettes - Immunization History Most Recent Influenza Vaccination: utd Most Recent Tetanus Shot: utd Most Recent Pneumonia Vaccination: none Review of Systems All Other Systems Reviewed And Are Negative: Yes Constitutional: Positive: Chills, Fatigue. Negative: Fever Skin: Negative: Rash Eyes: Negative: Drainage, Eye Redness ENT: Positive: Sore Throat, Ear Ache, Nasal Discharge, Sinus Congestion Respiratory: Positive: Cough. Negative: Shortness Of Breath Cardiovascular: Negative: Palpitations, Chest Pain Gastrointestinal: Positive: Vomiting, Diarrhea. Negative: Abdominal Pain, Nausea Genitourinary: Negative: Dysuria, Hematuria, Frequency, Urgency Musculoskeletal: Positive: Myalgia Neurological: Positive: Negative Is Patient Immunocompromised?: No Physical Exam - Summary Physical Exam Summary: GENERAL APPEARANCE: Well developed, well nourished, alert and cooperative, and appears to be in no acute distress. EYES: Conjunctiva clear. No drainage. EARS: Right external auditory canal clear with opaque TM with good cone of light. Left external auditory canal with cerumen impaction. TM not visualized. NOSE: Moderate nasal congestion. Clear nasal discharge. THROAT: Pharyngeal erythema. No tonsilar inflammation, swelling, exudate, or lesions. Uvula midline. NECK: Neck supple, non-tender without lymphadenopathy. CARDIAC: Normal S1 and S2. No S3, S4 or murmurs. Rhythm is regular. There is no peripheral edema, cyanosis or pallor. Extremities are warm and well perfused. Capillary refill is less than 2 seconds. Peripheral pulses intact. LUNGS: Clear to auscultation without rales, rhonchi, wheezing or diminished breath sounds. Dry, non-productive cough. ABDOMEN: Positive bowel sounds. Soft, nondistended, nontender. No guarding or rebound. No masses or hepatosplenomegally. MUSKULOSKELETAL: ROM intact to all extremities. No joint erythema or tenderness. Normal muscular development. Normal gait. SKIN: Skin normal color, texture and turgor with no lesions or eruptions. Triage Information Reviewed: Yes Vital Signs: Initial Vital Signs Temp 98.9 F 05/14/19 09:23 Pulse 82 05/14/19 09:23 Resp 18 05/14/19 09:23 BP 130/84 05/14/19 09:23 Pulse Ox 100 05/14/19 09:23 Vital Signs Reviewed: Yes Flu Course/Dx - Course Course Of Treatment: 33-year-old female who is 37 weeks presents with 6 day history of nasal congestion, sinus pressure, ear fullness, sore throat, and dry nonproductive cough. States 2 days ago started with increased fatigue, body aches, and chills. Noting decreased hearing in the left ear. Last night had a single episode of post-tussive emesis. Has had a couple episodes of loose stool. Denies fever, ear drainage, dysphagia, chest pain, shortness of breath, nausea, abdominal pain, cramping, or vaginal discharge. Afebrile. Vital signs stable. On exam the patient had moderate nasal congestion, clear nasal discharge. The right external auditory canal was clear without operate TM with good cone of light. The left external auditory canal had a cerumen impaction and the TM was not visible. The patient had pharyngeal erythema without tonsillar swelling or exudate and no cervical lymphadenopathy. Bilateral breath sounds were clear and patient had a dry nonproductive cough. The left external auditory canal was irrigated by the RN and a large amount of cerumen was removed. Post irrigation the TM was visualized and noted to be opaque with a good cone of light. Rapid flu test was negative. Reviewed results with the patient. Recommending symptomatic treatment for an upper respiratory infection. Patient reports she has an OB and ANIMAL THERAPIST appointment tomorrow and it was recommended that she follow-up with her primary care provider in 3 days if symptoms are not improving. Anticipatory guidance and warning symptoms are reviewed with the patient. Verbalizes understanding and agrees with plan of care. - Differential Dx/Diagnosis Differential Diagnosis/HQI/PQRI: Bronchitis, Influenza, Pneumonia, Upper Respiratory Infection, Other - Gastroenteritis Provider Diagnosis: , Viral URI with cough, Post-tussive vomiting Discharge ED - Sign-Out/Discharge Documenting (check all that apply): Patient Departure All imaging exams completed and their final reports reviewed: No Studies - Discharge Plan Condition: Stable Disposition: HOME Prescriptions: Fluticasone NASAL SPRAY 50MCG* [Flonase NASAL SPRAY 50MCG*] 2 spray BOTH NARES DAILY #1 btl Patient Education Materials: Upper Respiratory Infection (ED), Acute Nausea and Vomiting (ED) Referrals: Clyde Kemp MD [Primary Care Provider] - Additional Instructions: The rapid flu test performed in the clinic today was negative. Your history and exam are consistent with a viral upper respiratory infection. Viral infections do not respond to antibiotics and are limited to the treatment of symptoms. Viral infections typically run their course in 7-10 days. Use a saline rinse kit such as Neti Pot or NeilMed at least twice a day to help thin secretions and promote drainage of the sinuses. Use fluticasone (Flonase) nasal spray 2 sprays each nostril once daily. Take over the counter acetaminophen (Tylenol according to directions as needed for pain or fever. Use salt water gargles several times a day if you have a sore throat. You may also use Chloraseptic spray or Cepacol lonzenges according to directions which contain a numbing medication and can provide some temporary relief from your sore throat. Drink plenty of fluids. Try to drink small amounts frequently to avoid filling your stomach to full which can cause vomiting. If you are still having vomiting, start with a clear liquid diet including soup broths, Jello, popsicles, and kanwal-lola with carbonation stirred out of it. You may then advance to a bland diet including saltine crackers, toast, bananas , rice, and applesauce. Then return to a normal diet as tolerated. Follow up with your primary care provider in 3 days if symptoms persist. Seek immediate medical attention in the emergency room if you have fever greater than 100.5 F despite taking acetaminophen or ibuprofen, have chest pain , difficulty breathing, are unable to swallow, or have any worsening of symptoms. - Billing Disposition and Condition Condition: STABLE Disposition: Home
== END 2019-05-14 10:44 | disposition home or self-care (01) ==
LOC: UCEAST 08:45
DX: O99.89 Other specified diseases and conditions complicating pregnancy, childbirth and the puerperium (principal); O21.2 Late vomiting of pregnancy; J06.9 Acute upper respiratory infection, unspecified; R05 Cough; M79.10 Myalgia, unspecified site; Z3A.37 37 weeks gestation of pregnancy; Z88.6 Allergy status to analgesic agent; Z91.013 Allergy to seafood
CPT/HCPCS: 99213; G0463

== ENCOUNTER 2019-06-04 08:50 | Inpatient (IN) | payer OTHER ==
[2019-06-04 09:49] LABS: Urine Benzodiazepine Screen None Detected (None Detect); Urine Opiates Screen None Detected (None Detect)
[2019-06-04 10:53] LABS: Hematocrit 34 % (35-47); Hemoglobin 11.5 g/dL (12.0-16.0); Mean Corpuscular HGB Conc 34 g/dL (31-36); Mean Corpuscular Hemoglobin 30 pg (27-31); Mean Corpuscular Volume 89 fL (80-97); Mean Platelet Volume 8.2 fL (7.4-10.4); Platelet Count 276 10^3/uL (150-450); Red Blood Count 3.79 10^6 /uL (3.70-4.87); Red Cell Distribution Width 15 % (10-15); White Blood Count 8.7 10^3/uL (3.5-10.8)
[2019-06-04] MEDS ORDERED: Lactated Ringers 1000 ML Bag* 1,000 ML IV ONE (11:01)
[2019-06-04] MEDS ORDERED: Buffered Lidocaine 1% SYRIN* 1 ML/SYRINGE INTRADERM ONE ×2 (11:01→13:14)
[2019-06-04 11:17] LABS: Urine Appearance Clear; Urine Bilirubin Negative (Negative); Urine Blood Negative (Negative); Urine Color Yellow; Urine Glucose Negative (Negative); Urine Ketones Negative (Negative); Urine Nitrite Negative (Negative); Urine Protein Negative (Negative); Urine Specific Gravity 1.017 (1.010-1.030); Urine Urobilinogen Negative (Negative)
[2019-06-04] MEDS ORDERED: Lactated Ringers 1000 ML Bag* 1,000 ML IV SCH ×3 (12:00→17:00)
[2019-06-04 12:15] LABS: Albumin 3.2 g/dL (3.2-5.2); Calcium 8.6 mg/dL (8.6-10.3); Total Bilirubin 0.3 mg/dL (0.2-1.0)
[2019-06-04 12:21] LABS: Albumin/Globulin Ratio 1.1 (1-3); BUN/Creatinine Ratio 16.7 (8-20); EGFR African American 140.2 (>60); EGFR Non-African American 115.9 (>60); Globulin 2.9 g/dL (2-4); Total Protein 6.1 g/dL (6.4-8.9); Uric Acid 4.1 mg/dL (2.3-6.6)
[2019-06-04] MEDS ORDERED: ceFAZolin* 2 GM* ONE DOSE (Duplex) IVPB (13:00)
[2019-06-04] MEDS ORDERED: Sodium Citrate/Citric Acid* 15 ML UDC PO ONE (13:14)
[2019-06-04] MEDS ORDERED: Ondansetron INJ* 2 MG/ML VIAL IV PRN ×2 (14:13→14:14)
[2019-06-04] MEDS ORDERED: fentaNYL* 50 MCG/ML 2 ML VIAL (100 MCG VIAL) IV PRN (14:13)
[2019-06-04] MEDS ORDERED: Naloxone* 0.4 MG/ML 1 ML VIAL IV PRN ×2 (14:13→14:14)
[2019-06-04] MEDS ORDERED: diPHENhydraMINE IV* 50 MG/ML 1 ml VIAL (BENADRYL) IV PRN (14:14)
[2019-06-04] MEDS ORDERED: Scopolamine 1.5 mg* PATCH TRANSDERM PRN (14:14)
[2019-06-04] MEDS ORDERED: Nalbuphine* 10 MG/ML 1 ML VIAL IV PRN (14:14)
[2019-06-04] MEDS ORDERED: oxyCODONE/Acetamin 5/325 MG* TAB PO PRN ×2 (14:14)
[2019-06-04] MEDS: Docusate CAP* 100 MG PO SCH (19:22)
[2019-06-04] MEDS: Simethicone TAB* 80 MG TAB.CHEW PO SCH (19:23)
[2019-06-05] MEDS: Ketorolac INJ* 30 MG/ML 1 ML VIAL IV PRN ×3 (00:41→14:45)
--- NOTE | 2019-06-05 01:26 | OP ---
DATE OF OPERATION: 06/04/19 - ROOM #101 DATE OF : 87 SURGEON: Randee Song MD ELECTRICIAN SOUND: Mary Beth Fernandez CNM ANESTHESIA: Spinal. PRE-OP DIAGNOSIS: Intrauterine gestation at 39 and 1 weeks, prior section x2, desires permanent stabilization, new onset gestational hypertension , possible early labor. POST-OP DIAGNOSIS: Intrauterine gestation at 39 and 1 weeks, prior section x2, desires permanent stabilization, new onset gestational hypertension , possible early labor. OPERATIVE PROCEDURE: Repeat lower transverse section and bilateral tubal ligation. ESTIMATED BLOOD LOSS: 800 mL. SPECIMENS: Bilateral tubes. FLUIDS: Crystalloid. DRAINS: Vivar catheter with clear urine. FINDINGS: Female infant, weight 7 pounds. Apgars of 8 and 9. Normal-appearing uterus, ovaries, tubes, and placenta. Minimal amount of scar tissue. DESCRIPTION OF PROCEDURE: After informed consent was signed, the patient was taken to the operating room and given a spinal anesthesia that was found to be adequate. A Vivar catheter was introduced into her bladder and SCDs were placed on her legs. She was prepped and draped in the dorsal supine position with a leftward tilt. A Pfannenstiel skin incision was made with a scalpel and carried down to the underlying layer of fascia with the scalpel. The fascia was incised on either side of the midline and the fascial incision extended laterally with a combination of sharp and blunt dissection. The inferior edge of the fascial incision was grasped with Rizwana clamps, tented up, and dissected down with a combination of sharp and blunt dissection. Then, the superior edge of the fascial incision was grasped with Rizwana clamps, tended up , and dissected down with a combination of sharp and blunt dissection. The scar tissue between the rectus muscles was tended up and incised with the scalpel. The peritoneum was then entered bluntly and the peritoneal incision extended laterally with blunt pressure. The bladder blade was inserted and a transverse incision was made in the lower uterine segment with the scalpel. The uterine incision was extended superiorly and inferiorly with blunt pressure. The 's head was delivered followed by the shoulders and the rest of the body. The cord was milked towards the baby and after more than a minute, clamped x2 and cut. The baby was handed to the director call. Cord blood was collected. The placenta then was delivered with fundal massage and gentle cord traction. The uterus was exteriorized and cleared of clots and debris. The uterine incision was closed with 0-Vicryl in a running locked fashion with the second layer of suture imbricating the first. The abdomen was then irrigated and attention was turned to the tubes. The right tube was clamped x2 with a Krystin clamp and double suture ligated with 0 plain gut suture. The tube was then removed, good hemostasis was noted. This was repeated on the patient's left side. The uterus was placed back into the abdominal cavity, both tubal sites were visualized and the sutures appeared to be in place. The incision was then inspected and good hemostasis was noted. The peritoneum was then closed with 3-0 Vicryl in a running unlocked fashion. Cautery was used to create good hemostasis in the layer of the rectus muscles. The fascia was then closed with 0-Vicryl in a running unlocked fashion. Three interrupted sutures of 3-0 Vicryl were placed to reapproximate the subcuticular tissue and the skin was then closed with 4-0 Monocryl in a running subcuticular fashion. The incision was cleaned. Mastisol and Steri-Strips were placed. A dressing was placed and she was cleaned, moved to the stretcher and taken to the recovery room in stable condition. [id number]/[facility] #: [id number] [place]
[2019-06-05] MEDS ORDERED: oxyCODONE TAB* 5 MG TAB PO PRN ×2 (05:46)
[2019-06-05] MEDS: Simethicone TAB* 80 MG TAB.CHEW PO SCH ×5 (07:30→20:03)
[2019-06-05] MEDS: Docusate CAP* 100 MG PO SCH ×3 (08:39→20:03)
[2019-06-05] MEDS ORDERED: Ferrous Gluconate TAB* 324 MG TAB PO SCH (09:00)
[2019-06-05 09:09] LABS: ABS Eosinophils 0.1 10^3/ul (0-0.6); ABS Lymphocytes 1.9 10^3/ul (1.0-4.8); ABS Monocytes 0.6 10^3/ul (0-0.8); ABS Neutrophils 7.7 10^3/ul (1.5-7.7); Eosinophil % 0.7 %; Hematocrit 31 % (35-47); Hemoglobin 10.4 g/dL (12.0-16.0); Lymphocyte % 18.8 %; Mean Corpuscular HGB Conc 34 g/dL (31-36); Mean Corpuscular Hemoglobin 31 pg (27-31); Mean Corpuscular Volume 90 fL (80-97); Mean Platelet Volume 8.1 fL (7.4-10.4); Platelet Count 265 10^3/uL (150-450); Red Cell Distribution Width 15 % (10-15); White Blood Count 10.3 10^3/uL (3.5-10.8)
[2019-06-05] MEDS ORDERED: Acetaminophen TAB* 325 MG PO PRN (16:08)
[2019-06-05] MEDS: Ibuprofen TAB* 600 MG PO PRN (23:07)
[2019-06-06] MEDS: Ibuprofen TAB* 600 MG PO PRN (07:44)
[2019-06-06 10:30] VITALS: BP 143/86
[2019-06-06] MEDS ORDERED: LORazepam TAB(*) 0.5 MG PO PRN (11:33)
[2019-06-06] MEDS: Docusate CAP* 100 MG PO SCH (12:19)
[2019-06-06] MEDS: Simethicone TAB* 80 MG TAB.CHEW PO SCH (12:19)
[2019-06-07] MEDS ORDERED: Scopolamine PATCH Remove* 1 NOTE MISC PATCH OFF PRN (14:16)
== END 2019-06-06 14:35 | disposition home or self-care (01) | DRG 540 ==
LOC: MCHOBOUT 08:50 → MCHOB 10:04
PROVIDERS: ADMIT Obstetrics & Gynecology; ATTEND Obstetrics & Gynecology
PROC: 0UB70ZZ Excision of Bilateral Fallopian Tubes, Open Approach (ICD-10-PCS; 2019-06-04)
PROC: 4A1HXCZ Monitoring of Products of Conception, Cardiac Rate, External Approach (ICD-10-PCS; 2019-06-04)
PROC: 10D00Z1 Extraction of Products of Conception, Low, Open Approach (ICD-10-PCS; principal; 2019-06-04 13:36)
DX: O34.211 Maternal care for low transverse scar from previous cesarean delivery (principal); O13.4 Gestational [pregnancy-induced] hypertension without significant proteinuria, complicating childbirth; O69.81X0 Labor and delivery complicated by cord around neck, without compression, not applicable or unspecified; O77.0 Labor and delivery complicated by meconium in amniotic fluid; Z3A.39 39 weeks gestation of pregnancy; Z37.0 Single live birth; Z88.6 Allergy status to analgesic agent; Z30.2 Encounter for sterilization; Z91.013 Allergy to seafood
CPT/HCPCS: 36415; 80053; 80307; 81003; 84112; 84550; 85025; 85027; 86850; 86900; 86901; 88302; A9270-GY; G0480; J0690; J1885